=== PATIENT | female | born 1945 | race Caucasian/White ===

== ENCOUNTER 2025-07-13 18:22 | Emergency (ER) | payer MEDICARE, SELFPAY ==
--- OUTSIDE RECORDS SUMMARY | 2025-01-23 08:45 | XMS_ITS | Continuity of Care Document ---
Author Organization [facility] Address [address] [place] [address] Phone Care Team Providers Care Medical Scientific Officer Name Role Phone Maykel VILLEGAS MD, Heladio Unavailable Unavailable Procedures Procedure Date Initial Inpatient Or Observation Care, M od [facility] Advance Directives Directive Yes / No Effective Date File Name No Information Encounters Encounter Description Practice Location Reason(s) For Visit Diagnoses Date Provider Providers Copied on Encounter Initial Inpatient Or Observation Care, Mod [facility], [address], [id number], tel:[phone] No Information Maykel Leija. [address] [facility], [address], [place], [place], [id number], . tel:[phone] Referring Provider: Heladio Brar MD S, [address], [place], [address] . tel:[phone] Family History Family Member Type Diagnosis Age At Onset No Information Payers Payer name Insurance type Covered green party ID Authoriza tion(s) [place] Part B MB [id number] [place] Blue Cross Blue Shiel d [place] [id number] Social History Type Description Quantity Date Captured Comments Sex Female Smoking Status No Information Chief Complaint And Reason For Visit No Information Reason For Referral Reason For Referral No Information History Of Present Illness Encounter Date Complaint History Of Prese nt Illness No Information Functional Status Date Functional Assessmen t No Information Instructions Date Instruction Additional Infor mation No Information Assessments Type Assessment Date No Information Patient Care Teams Name Effective Dates (start - stop) Status Members No Information
--- OUTSIDE RECORDS SUMMARY | 2025-07-13 18:24 | XMS_ITS | Encounter Summary ---
Author Organization [facility] Address [address] [place] [address] Phone Care Team Providers Care Drain Tile Machine Operator Name Role Phone Tesfaye Dennis MD Primary Care Provider No, Physician Primary Care Provider Tsering Plaza MD Primary Care Provider Chidi Cardona MD Unavailable Ross Gill MD Unavailable [phone] Zay Lebron MD Primary Care Provider Tsering Plaza MD Unavailable Ross Gill MD Unavailable [phone] Tuan Mcintosh MD Unavailable [phone] Brandon Chakraborty MD Unavailable Sadaf Martel RN Unavailable Todd Quiñones MD Unavailable [phone] Danie Motnana MD Unavailable [phone] Josue Maciel RN Unavailable [facility] Pcp Unavailable Zay Lebron MD Primary Care Provider Encounter Details Date Type Department Care Team (Late st Contact Info) Description 04/13/2018 Orders Only [facility] Provider, MD [address] [place] [phone] Social History Tobacco Use Types Packs/Day Years Used Date Smoking Tobacco: Former Cigarettes Q uit: 1997 Smokeless Tobacco: Never Alcohol Use Standard Drinks/Week Comments No 0 (1 standard drink = 0.6 oz pure alcohol) 2 cups of coffee and 2 cups of tea Comments Unknown Sex and Gender Information Value Date Recorded Sex Assigned at Not on file Legal Sex Female 3:18 AM DELINQUENT TAX COLLECTOR Gender Identity Not on file Sexual Orientation Not on file documented as of this encounter Plan of Treatment Not on file documented as of this encounter Procedures Procedure Name Priority Date/Time Associated Diagnosis Comments DISCHARGE LABORATORY CUMULATIVE REPORT 04/13/2018 12:00 AM CDT documented in this encounter Results * DISCHARGE LABORATORY CUMULATIVE REPORT (04/13/2018 12:00 AM CDT) Narrative 04/13/2018 12:00 AM CDT Ordered by an unspecified provider. Historical Provider LAB BLOOD ORDERABLES Tracy l Result documented in this encounter Visit Diagnoses Not on filedocumented in this encounter Additional Health Concerns Infection Onset Date Last Indicated Resolved Time COVID: Suspected 11/01/2024 11/01/2024 11/01/2024 2:33 PM DELINQUENT TAX COLLECTOR COVID19 11/01/2024 11/01/2024 11/11/2024 3:05 AM DELINQUENT TAX COLLECTOR COVID: Recovered Comment:Added based on recent COVID infection. 11/11/2024 11/16/2024 02/09/2025 3:05 AM C DT COVID: Suspected 02/05/2025 02/05/2025 02/05/2025 11:50 AM CDT documented as of this encounter Care Teams Drain Tile Machine Operator Relationship Specialty Start Date End Date Tesfaye Dennis MD [address] [address] PCP - General 05/26/17 01/10/19 No, Physician PCP - General 01/11/19 04/10/19 Tsering Plaza MD PCP - General Nephrology 04/11/19 09/03/21 Zay Lebron MD [address] [facility] [address] [place] [address] PCP - General Family Medicine 09/04/21 04/24/25 Zay Lebron MD [address] [address] PCP - General Family Medicine 04/25/25 Chidi Cardona MD [address] [facility] [address] [place] [address] Consulting Physician Rheumatology 11/20/19 Ross Gill MD [address] [facility] [address], [place] [address] Consulting Physician Cardiology 11/20/19 Tsering Plaza MD [address] [facility] [address] [place] [address] Registered Nurse Nephrology 10/12/22 Ross Gill MD [address] [facility] [address] [place] [address] Consulting Physician Cardiology 10/12/22 10/12/22 Tuan Mcintosh MD [address] [facility] [address] [place] [address] Referring Physician Cardiology 10/12/22 Brandon Chakraborty MD [address] [facility] [address] [place] [address] Consulting Physician Rheumatology 04/13/23 Sadaf Martel, MARGARETH [address] [place] [address] [address] [place] [address] Sales Teacher 05/20/23 07/13/23 Todd Quiñones MD [address] [place] [address] [address] [place] [address] Consulting Physician Colon and Rectal Surgery 06/19/23 Danie Montana MD [address] [place] [address] Consulting Physician Urogynecology 12/16/23 Josue Maciel, MARGARETH [address] [place] [address] [address] [place] [address] Sales Teacher 12/13/24 03/01/25 [facility], [facility] Pcp [address] [place] [id number] 01/26/25 02/05/25 documented as of this encounter
--- OUTSIDE RECORDS SUMMARY | 2025-07-13 18:24 | XMS_ITS | Encounter Summary ---
Author Organization [facility] Address [address] [place] [address] Care Team Providers Care Glass Deposition Tender Name Role Phone Chidi Cardona MD Unavailable [phone] Ross Gill MD Unavailable Zay Lebron MD Primary Care Provider Tsering Plaza MD Unavailable Tuan Mcintosh MD Unavailable [phone] Brandon Chakraborty MD Unavailable Sadaf Martel RN Unavailable Todd Quiñones MD Unavailable Danie Montana MD Unavailable [phone] Josue Maciel RN Unavailable [phone] [facility] Pcp Unavailable Zay Lebron MD Primary Care Provider Encounter Details Date Type Department Care Team (Late st Contact Info) Description 10/30/[address] [address] Lis Garsia, RT Social History Tobacco Use Types Packs/Day Years Used Date Smoking Tobacco: Former Cigarettes 0.8 54 0 11/15/1956 - 11/15/2010 Smokeless Tobacco: Never Alcohol Use Standard Drinks/Week Comments No 0 (1 standard drink = 0.6 oz pure alcohol) 2 cups of coffee and 2 cups of tea AUDIT-C Answer Date Recorded Q1: How often do you have a drink containing alc ohol? Never 07/27/2022 Average Number of Drinks Not on file 022 Frequency of Binge Drinking Not on file 07/16 PHQ-2 Answer Date Recorded PHQ-2 Total Score (If total score is 3 or more points, staff should administer the PHQ-9) 0 10/12/2022 Comments No Sex and Gender Information Value Date Recorded Sex Assigned at Not on file Legal Sex Female 3:18 AM SUPERVISOR PARACHUTE MANUFACTURING Gender Identity Not on file Sexual Orientation Not on file documented as of this encounter Plan of Treatment Not on file documented as of this encounter Visit Diagnoses Not on filedocumented in this encounter Additional Health Concerns Infection Onset Date Last Indicated Resolved Time COVID: Suspected 11/01/2024 11/01/2024 11/01/2024 2:33 PM SUPERVISOR PARACHUTE MANUFACTURING COVID19 11/01/2024 11/01/2024 11/11/2024 3:05 AM SUPERVISOR PARACHUTE MANUFACTURING COVID: Recovered Comment:Added based on recent COVID infection. 11/11/2024 11/16/2024 02/09/2025 3:05 AM C DT COVID: Suspected 02/05/2025 02/05/2025 02/05/2025 11:50 AM CDT documented as of this encounter Care Teams Glass Deposition Tender Relationship Specialty Start Date End Date Zay Lebron MD [address] [place] [address] PCP - General Family Medicine 09/04/21 04/24/25 Zay Lebron MD [address] [place] [address] PCP - General Family Medicine 04/25/25 Chidi Cardona MD [address] [place] [address] Consulting Physician Rheumatology 11/20/19 Ross Gill MD [address] [place] [address] Consulting Physician Cardiology 11/20/19 Tsering Plaza MD [address] [place] [address] Registered Nurse Nephrology 10/12/22 Tuan Mcintosh MD [address] [place] [address] Referring Physician Cardiology 10/12/22 Brandon Chakraborty MD [address] [facility] [address] [place] [address] Consulting Physician Rheumatology 04/13/23 Sadaf Martel RN [address] [place] [address] [address] [place] [address] Utilization Engineer 05/20/23 07/13/23 Todd Quiñones MD [address] [place] [address] [address] [place] [address] Consulting Physician Colon and Rectal Surgery 06/19/23 Danie Montana MD [address] [place] [address] Consulting Physician Urogynecology 12/16/23 Josue Maciel, MARGARETH [address] [place] [address] [address] [place] [address] Utilization Engineer 12/13/24 03/01/25 [facility], [facility] Pcp [address] [place] [address] 01/26/25 02/05/25 documented as of this encounter
--- OUTSIDE RECORDS SUMMARY | 2025-07-13 18:24 | XMS_ITS | Encounter Summary ---
Author Organization [facility] [employer] [facility] Address [address] [place] [address] Phone Care Team Providers Care Security Agent Name Role Phone Tesfaye Dennis MD Primary Care Provider No, Physician Primary Care Provider [phone] Tsering Plaza MD Primary Care Provider Chidi Cardona MD Unavailable [phone] Ross Gill MD Unavailable [phone] Zay Lebron MD Primary Care Provider Tsering Plaza MD Unavailable Ross Gill MD Unavailable Tuan Mcintosh MD Unavailable [phone] Brandon Chakraborty MD Unavailable [phone] Sadaf Martel RN Unavailable Todd Quiñones MD Unavailable Danie Montana MD Unavailable Josue Maciel RN Unavailable [facility] Pcp Unavailable Zay Lebron MD Primary Care Provider Encounter Details Date Type Department Care Team (Late st Contact Info) Description 02/03/2018 Orders Only [facility] Provider, MD [address] [place] [phone] Social History Tobacco Use Types Packs/Day Years Used Date Smoking Tobacco: Former Cigarettes Q uit: 1997 Smokeless Tobacco: Never Alcohol Use Standard Drinks/Week Comments No 0 (1 standard drink = 0.6 oz pure alcohol) 2 cups of coffee and 2 cups of tea Comments Unknown Sex and Gender Information Value Date Recorded Sex Assigned at Not on file Legal Sex Female 3:18 AM RESPIRATORY THERAPIST Gender Identity Not on file Sexual Orientation Not on file documented as of this encounter Plan of Treatment Not on file documented as of this encounter Procedures Procedure Name Priority Date/Time Associated Diagnosis Comments DISCHARGE LABORATORY CUMULATIVE REPORT 02/03/2018 12:00 AM CDT documented in this encounter Results * DISCHARGE LABORATORY CUMULATIVE REPORT (02/03/2018 12:00 AM CDT) Narrative 02/03/2018 12:00 AM CDT Ordered by an unspecified provider. Historical Provider LAB BLOOD ORDERABLES Tracy l Result documented in this encounter Visit Diagnoses Not on filedocumented in this encounter Additional Health Concerns Infection Onset Date Last Indicated Resolved Time COVID: Suspected 11/01/2024 11/01/2024 11/01/2024 2:33 PM RESPIRATORY THERAPIST COVID19 11/01/2024 11/01/2024 11/11/2024 3:05 AM RESPIRATORY THERAPIST COVID: Recovered Comment:Added based on recent COVID infection. 11/11/2024 11/16/2024 02/09/2025 3:05 AM C DT COVID: Suspected 02/05/2025 02/05/2025 02/05/2025 11:50 AM CDT documented as of this encounter Care Teams Security Agent Relationship Specialty Start Date End Date Tesfaye Dennis MD [address] [address] PCP - General 05/26/17 01/10/19 No, Physician PCP - General 01/11/19 04/10/19 Tsering Plaza MD PCP - General Nephrology 04/11/19 09/03/21 Zay Lebron MD [address] [facility] [address] [place] [address] PCP - General Family Medicine 09/04/21 04/24/25 Zay Lebron MD [address] [address] PCP - General Family Medicine 04/25/25 Chidi Cardona MD [address] [facility] [address] [place] [address] Consulting Physician Rheumatology 11/20/19 Ross Gill MD [address] [facility] [address] [address] Consulting Physician Cardiology 11/20/19 Tsering Plaza MD [address] [facility] [address] [place] [address] Registered Nurse Nephrology 10/12/22 Ross Gill MD [address] [facility] [address] [place] [address] Consulting Physician Cardiology 10/12/22 10/12/22 Tuan Mcintosh MD [address] [facility] [address] [place] [address] Referring Physician Cardiology 10/12/22 Brandon Chakraborty MD [address] [facility] [address] [place] [address] Consulting Physician Rheumatology 04/13/23 Sadaf Martel, MARGARETH [address] [place] [address] [address] [place] [address] Electric Fork Operator 05/20/23 07/13/23 Todd Quiñones MD [address] [place] [address] [address] [place] [address] Consulting Physician Colon and Rectal Surgery 06/19/23 Danie Montana MD [address] [place] [address] Consulting Physician Urogynecology 12/16/23 Josue Maicel, MARGARETH [address] [place] [address] [address] [place] [address] Electric Fork Operator 12/13/24 03/01/25 [facility], [facility] Pcp [address] [place] [id number] 01/26/25 02/05/25 documented as of this encounter
--- OUTSIDE RECORDS SUMMARY | 2025-07-13 18:24 | XMS_ITS | Clinical Summary ---
Author Organization [facility] Address [address] [place] [address] Phone Care Team Providers Care Engagement Lead Name Role Phone Tsering Plaza MD Primary Care Provider Allergies Active Allergy Reactions Criticality Noted Date Comments Adhesive Tape-Silicones Unknown Ciprofloxacin Hcl Unknown Doxycycline Unknown Erythromycin Unknown 01/06/2011 Iodine Unknown Isosorbide Mononitrate Headache Low 09/19/2014 Latex Unknown Penicillins Unknown Simvastatin Muscle Pain Low 08/28/2011 Sulfa (Sulfonamide Antibiotics) Unknown Medications propafenone (RYTHMOL) 150 mg Oral Tab Take 1 Tab by mouth 2 times daily. Active aspirin (SHAWN) 81 mg Oral Tab Take 1 Tab by mouth daily. Active amLODIPine (NORVASC) 5 mg tablet Take 5 mg by mouth 2 times daily. Hold if BP below 120. Active CALCIUM CARBONATE (CALCIUM 500 ORAL) Take by mouth daily. Active HYDROCODONE/ALF TAMINOPHEN (NORCO ORAL) Take by mouth 1 time daily as needed. Active atenolol (TENORMIN) 25 mg tablet Take 25 mg by mouth daily. Hold if BP below 100. Active predniSONE (DELTASONE) 5 mg tablet Take 5 mg by mouth daily. Active predniSONE (DELTASONE) 1 mg tablet Take 3 mg by mouth daily. Active rosuvastatin (CRESTOR) 10 mg tablet Take 0.5 Tabs (5 mg) by mouth daily at bedtime. 15 Tab 11 03/20/2015 Active VITAMIN D2 50,000 unit capsule TAKE 1 CAPSULE BY MOUTH TWICE MONTHLY(EVER Y 2 WEEKS) 6 Cap 0 04/19/2015 Active Active Problems Patient Care Coordination No te Formatting of this note migh t be different from the original. Slabbing Machine Operator - Dr Ross Gill Problem Noted Date Diagnosed Date Raynaud phenomenon 09/19/2014 Overview (09/19/2014): in setting of RA & Sjogren's... Dr. Yoon follows Hyperlipidemia 08/07/2011 Overview (03/20/2015): 02/27 Cholesterol 156 HDL 74 LDL 68 triglycerides 72, normal LFTs/CK/glucose 06/28 Cholesterol 130 HDL 57 LDL 65 triglyceride 42, normal LFTs/glucose 11/27 Cholesterol 119 HDL 57 LDL 54 triglyceride 40, normal LFTs/CK/glucose 02/24 cholesterol 110 HDL 57 LDL 47 triglyceride 37, normal LFTs/CK 09/25 cholesterol 116 HDL 52 LDL 49 triglyceride 38, normal LFTs/CK 07/26 cholesterol 183 HDL 57 LDL 115 triglyceride 44, TSH 1.5, normal LFTs Renal insufficiency 08/07/2011 Overview (03/20/2015): 02/27 BUN 22 creatinine 1.24 06/28 BUN 20 creatinine 1.04 11/27 BUN 23 creatinine 1.24 09/25 BUN 21 creatinine 1.27 07/26 BUN 31 creatinine 1.39 Renal artery stenosis 01/06/2011 Overview (07/13/2014): 10/19 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 2010 renal artery duplex: OK per patient 05/28 renal artery duplex: possible borderline stenosis mid-distal right renal artery, no left IRMA Atrial fibrillation 01/06/2011 Overview (03/17/2012): ~1996 AF: Rx'd with Rhythmol Coronary atherosclerosis of [place] coronary shadi ry 01/06/2011 Overview (07/23/2014): 10/19 cath: LV 180/20-24, RA 3, PA 35/12, wedge10, significant systolic bridging mid LAD, 40-50% proximal D1, EF 80%, no MR 01/23 stress nuclear 6:00--61% maximal heart rate, no ischemia, EF 86% 07/29 stress nuclear 5:50--73% maximal heart rate, no ischemia, EF 75% Hypertension 01/06/2011 Overview (03/17/2012): 09/19 echo: EF 70%, mild MR, moderate TR 03/21 echo: EF 65%, mild MR/TR, PA 32 07/26 24-hour urine metanephrines, normetanephrines, VMA, 5'HIAA normal Supraventricular tachycardia 01/06/2011 Overview (11/24/2012): Holter: sinus rhythm range 50-110, occasional-frequent PACs, short runs atrial tachycardia, longest 6 12/26 Holter: sinus rhythm at 70, range 54-98), 1 PVC, 104 PACs, 5 atrial couplets, maximum pause 1.5, h/a correlated with SR in 60s History of rheumatic fever 01/06/2011 Overview (01/06/2011): Age 89 years old 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 Overview (03/17/2012): 2007 amaurosis fugax -> carotid Duplex negative; temporal artery biopsy negative ~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 Resolved Problems Problem Noted Date Diagnosed Date Resolved Date Chest discomfort 01/06/2011 03/17/2012 Tricuspid regurgitation 01/06/201101/2012 Overview (03/17/2012): 09/19 echo: EF 70%, mild MR, moderate TR 03/21 echo: EF 65%, mild MR/TR, PA 32. GERD (gastroesophageal reflux disease) 01/06/2011 03/17/2012 Family History Relation Name Status Comments Brother 1 Alive irregular heart beat Brother 2 Alive Brother 3 (Age 29) MVA Brother 4 (Age 51) brain aneu rysm Father (Age 54) industrial accident Mother (Age 83) AK/CABG at 70 Sister Alive Social History Tobacco Use Types Packs/Day Years Used Date Smoking Tobacco: Former Cigarettes 0.1 11.3 S tarted: 03/15/2014 Smokeless Tobacco: Never Alcohol Use Standard Drinks/Week Comments Yes 0 (1 standard drink = 0.6 oz pur e alcohol) Comments Unknown Sex and Gender Information Value Date Recorded Sex Assigned at Not on file Legal Sex Female 5:14 AM CLOTH MERCERIZER BACK TENDER Gender Identity Not on file Sexual Orientation Not on file 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 Not on file Not on file Last Filed Vital Signs Vital Sign Reading Time Taken Comments Blood Pressure 102/60 03/20/2015 11:27 AM CDT Pulse 70 03/20/2015 11:27 AM CDT Temperature - - Respiratory Rate 16 03/20/2015 11:27 AM CDT Oxygen Saturation 100% 07/17/2014 11:44 AM CDT Inhaled Oxygen Concentration - - Weight 46.3 kg (102 lb) 03/20/2015 11:27 AM CDT Height 154.9 cm (5' 1) 03/20/2015 11:27 AM CDT Body Mass Index 19.27 03/20/2015 11:27 AM CDT Plan of Treatment Health Maintenance Due Date Last Done Comments DTAP/TDAP/TD VACCINES (1 - Tdap) 1964 ZOSTER VACCINE (1 of 2) 1995 RSV VACCINE (60+ or ) (1 - 1-dose 75+ series) 2020 COVID-19 Vaccine ( - 2023-2 5 season) 2024 09/29/2021, 01/31/2021, 01/10/2021 INFLUENZA VACCINE (#1) 2025 0, 08/14/2019, 08/14/2018, Additional history exists OSTEOPOROSIS SCREENING 09/16/2026 1, 06/10/2018, 05/09/2015, Additional history exists PNEUMOCOCCAL VACCINE 50+ YEARS Completed 09/04/2021 , 09/16/2015 Insurance MEDICARE PART A AND B [employer] MEDICARE SUPP AESSI Care Teams Engagement Lead Relationship Specialty Start Date End Date Tsering Plaza MD PCP - General Internal Medicine 07/19/14
--- OUTSIDE RECORDS SUMMARY | 2025-07-13 18:24 | XMS_ITS | Clinical Summary ---
Author Organization [facility] Address [address], [facility] [address] [place] [address] Phone Care Team Providers Care Wastewater Design Engineer Name Role Phone Provider, None Primary Care Provider Unavailabl e Allergies Active Allergy Reactions Criticality Noted Date Comments Cefaclor Unknown 09/27/2015 Cefdinir Swelling 11/12/2015 Ciprofibrate Unknown 09/27/2015 Doxycycline Unknown 11/12/2015 Erythromycin Unknown 09/27/2015 Iodinated Contrast Media Unknown 09/27/2015 Isosorbide Nitrate Unknown 11/12/2015 Latex Hives 11/12/2015 Metoprolol Tartrate Unknown 09/27/2015 Penicillin G Unknown 09/27/2015 Sulfa Antibiotics Unknown 09/27/2015 Medications amLODIPine (NORVASC) 5 MG Tablet Take 5 mg by mouth 2 times daily (before meals). Active aspirin EC 81 MG Tablet Delayed Response Take 81 mg by mouth daily. Active atorvastatin (LIPITOR) 10 MG Tablet 3 5 Active calcium carbonate 1250 MG/5ML Suspension Take by mouth. Acti ve azaTHIOprine (IMURAN) 50 MG Tablet 11 5 Active NITROSTAT 0.4 MG SL Tablet 3 5 Active propafenone (RYTHMOL) 150 MG Tablet Take 150 mg by mouth 2 times daily. 3 5 Active ergocalciferol (VITAMIN D) 38080 UNIT Capsule Take 50,000 Units by mouth every 30 days. 3 5 Active HYDROcodone-nicci taminophen (NORCO) 5-325 MG Tablet TK 1 T PO Q 8 H PRN 0 6 Active predniSONE (DELTASONE) 1 MG Tablet TK 4 MG PO QD 2 6 Active dilTIAZem CD (CARDIZEM CD) 120 MG CAPSULE SR 24 HR TK 1 C PO D 3 7 Active fluticasone (FLONASE) 50 MCG/ACT Suspension 2 Sprays by Nasal route daily. Use in each nostril as directed. 1 Bottle 2 8 Active Additional Information Patient not taking.Reported on 05/12/2018 Calcium Carb-Cholecalci ferol (CALCIUM 600 + D PO) Take by mouth. Act rakan Cyanocobalamin (B-12) 1000 MCG Tablet Take by mouth. Activ e folic acid (FOLVITE) 1 MG Tablet Take 1 mg by mouth daily. Active methotrexate 2.5 MG Tablet Take 7.5 mg by mouth every 7 days. Active Multiple Vitamin (MULTIVITAMINS PO) Take by mouth. Activ e pravastatin (PRAVACHOL) 40 MG Tablet Take 40 mg by mouth daily. Active Active Problems Problem Noted Date Diagnosed Date Trigger thumb of left hand 11/12/2015 Hypertension 09/27/2015 GERD (gastroesophageal reflux disease) 5 History of anemia 09/27/2015 IBS (irritable bowel syndrome) 09/27/2015 Hyperlipidemia 09/27/2015 Arthritis 09/27/2015 Atrial fibrillation 09/27/2015 Carpal tunnel syndrome 09/27/2015 Osteopenia 09/27/2015 Raynaud's disease Renal artery stenosis Overview (11/12/2015): stent placement left renal artery Immunizations Immunization Administration Dates Next Due Hepatitis B Vaccine, Pediatric/adolescent 12/17/1998,07/16/1998,06/12/1998 Influenza Vaccine greater than 3 yrs 08/31/2016, 09/12/2015 08/31/2017 Influenza, Seasonal, Injecta ble, Undefined 09/12/2015,09/06/2013,08/31/2012 Influenza, Trivalent, Adjuvanted, PF 08/15/2018 Influenza, high-dose, trivalent, PF 07/18,08/16/2017,08/30/2016,09/16,09/05/2014 Pneumococcal Vaccine - 13 Valent 09/16/2015 Tetanus Toxoid, Unspecified Formulation 08/15/2006 Social History Tobacco Use Types Packs/Day Years Used Date Smoking Tobacco: Former Cigarettes Q uit: 11/12/2013 Smokeless Tobacco: Never Tobacco Cessation:Counseling Given: Yes Alcohol Use Standard Drinks/Week Comments No 0 (1 standard drink = 0.6 oz pur e alcohol) Sexually Active Control Partners Comments Not Currently Comments No Sex and Gender Information Value Date Recorded Sex Assigned at Not on file Legal Sex Female 10:21 PM CDT Gender Identity Not on file Sexual Orientation Not on file Last Filed Vital Signs Vital Sign Reading Time Taken Comments Blood Pressure 128/60 05/12/2018 11:17 AM CDT Pulse 51 05/12/2018 11:17 AM CDT Temperature 36.4 C (97.6 F) 05/12/2018 11:17 AM CDT Respiratory Rate 16 05/12/2018 11:17 AM CDT Oxygen Saturation 98% 05/12/2018 11:17 AM CDT Inhaled Oxygen Concentration - - Weight 45.1 kg (99 lb 6.4 oz) 05/12/2018 11:17 A M CDT Height 154.9 cm (5' 1) 05/12/2018 11:17 AM CDT Body Mass Index 18.78 05/12/2018 11:17 AM CDT Plan of Treatment Health Maintenance Due Date Last Done Comments Hepatitis C Virus (HCV) Screening 1945 TdaP Immunization 1945 Zoster Immunization (1 of 2) 1964 Pneumococcal Immunization (50+ years) (2 of 2 - PCV20 or PCV21) 09/16/2016 09/16/2015 Respiratory Syncytial Virus (RSV) Immunization (Adult) (1 - 1-dose 75+ series) 2020 SARS-COV-2 Immunization ( - season) 2024 09/29/2021, 01/31/2021, 01/10/2021 Influenza Immunization (#1) 07/16/202507/18, 08/15/2018, 08/16/2017, Additional history exists Hepatitis B Immunization Aged Out 999, 07/16/1998, 06/12/1998 No longer eligible based on patient's age to complete this topic Pneumococcal Immunization Combined Discontinued 09/16/2015 Human Papillomavirus (HPV) Immunization Aged Out No longer eligible based on patient's age to complete this topic Meningococcal Immunization (ACWY) Aged Out No longer eligible based on patient's age to complete this topic Rotavirus Immunization Aged Out No lo nger eligible based on patient's age to complete this topic Insurance MEDICARE [employer] [facility] Care Teams Wastewater Design Engineer Relationship Specialty Start Date End Date Provider, None [place] PCP - General 05/01/21
--- OUTSIDE RECORDS SUMMARY | 2025-07-13 18:25 | XMS_ITS | Encounter Summary ---
Author Organization [employer] Address 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
--- OUTSIDE RECORDS SUMMARY | 2025-07-13 18:25 | XMS_ITS | Clinical Summary ---
Author Organization [facility] Address [address] [place] [address] Care Team Providers Care Solar Systems Designer Name Role Phone Chidi Cardona MD Unavailable [phone] Ross Gill MD Unavailable Tsering Plaza MD Unavailable Tuan Mcintosh MD Unavailable Brandon Chakraborty MD Unavailable [phone] Todd Quiñones MD Unavailable Danie Montana MD Unavailable Zay Lebron MD Primary Care Provider Allergies Active Allergy Reactions Criticality Noted Date Comments Adhesive Adhesive Tape-Silicones Unknown 06/19/2023 Azathioprine Nausea And Vomiting,Rash Medium 04/28/2016 Cefaclor Cefdinir Ciprofibrate Unknown 09/27/2015 Ciprofloxacin Hives Medium Ciprofloxacin Hcl Unknown Doxycycline Urticaria Medium Erythromycin Iodinated Contrast Media Hives Medium 09/27/2015 Iodine Isosorbide Latex Itching Low Lisinopril Anaphylaxis High 01/11/2019 Metrizamide Urticaria Medium 10/25/2015 Other reaction(s): Unknown Penicillin Penicillin G Hives Medium 09/27/2015 Penicillins Vomiting Low 06/19/2023 Povidone-Iodine Rash Medium 10/25/2015 Quinolones Simvastatin Sulfa (Sulfonamide Antibiotics) Unknown 09/27/2015 Sulfasalazine Rash Medium 09/27/2015 Tetracycline Medications pravastatin (PRAVACHOL) 40 mg tabletIndications :hyperlipidemia Take 1 tablet (40 mg total) by mouth nightly Active cholecalciferol (VITAMIN D-3) 2000 unit capsuleIndication s:Osteoporosis Take 1 capsule (2,000 Units total) by mouth daily Active multivit rzpjswcd-pimx-FL- calcium (THERA-M) 9 mg iron-400 mcg tabletIndications :Mineral Deficiency Prevention,Vitami n Deficiency Prevention Take 1 tablet by mouth daily Active calcium citrate-vitamin D3 (CITRACAL+D) 315 mg-5 mcg (200 unit) per tabletIndications :Vitamin D Deficiency Take 1 tablet by mouth daily Active dilTIAZem CD 240 mg 24 hr capsuleIndication s:Diastolic Heart Failure,hypertens ion,Ventricular Rate Control in Atrial Fibrillation Take 1 capsule (240 mg total) by mouth 2 (two) times a day 12/05/19 24 Active predniSONE (DELTASONE) 5 mg tabletIndications :lupus Take 1 tablet (5 mg) by mouth daily 05/28/20 24 Active apixaban (ELIQUIS) 2.5 mg tabletIndications :VTE Prophylaxis Take 1 tablet (2.5 mg total) by mouth 2 (two) times a day Active metoprolol XL (TOPROL-XL) 50 mg extended release tabletIndications :chronic heart failure,hypertens ion Take 1.5 tablets (75 mg total) by mouth daily Active mycophenolate mofetil (CELLCEPT) 500 mg tabletIndications :Diffuse Proliferative Lupus Nephritis Take 1 tablet (500 mg total) by mouth 2 (two) times a day Active docusate sodium (COLACE) 100 mg capsuleIndication s:constipation Take 1 capsule (100 mg total) by mouth 2 (two) times a day as needed for constipation 12/12/19 25 026 Active Additional Information Patient not taking.Reported on 05/21/2025 magnesium oxide (MAG-OX) 400 mg (241.3 mg elemental magnesium) tabletIndications :hypomagnesemia Take 1 tablet (400 mg total) by mouth daily 12/12/19 25 Active potassium chloride ER (KLOR-CON) 10 mEq CR tabletIndications :hypokalemia prevention Take 1 tablet/capsule (10 mEq total) by mouth 2 (two) times a day 180 tablet/capsu le 3 12/12/19 25 026 Active ferrous sulfate 325 mg (65 mg of elemental iron) tablet Take 1 tablet (65 mg of elemental iron total) by mouth daily with breakfast Active furosemide (LASIX) 80 mg tabletIndications :Edema,Peripheral Edema due to Chronic Heart Failure Take 1 tablet (80 mg total) by mouth daily 30 tablet 1 01/29/20 25 Active cyanocobalamin (Vitamin B-12) 500 mcg tabletIndications :Prevention of Vitamin B12 Deficiency Take 1 tablet (500 mcg total) by mouth daily Active acetaminophen (TYLENOL) 500 mg tabletIndications :Arthritic Pain,Pain Take 1 tablet (500 mg total) by mouth every 6 (six) hours as needed for pain Active allopurinoL (ZYLOPRIM) 100 mg tabletIndications :Acute idiopathic gout involving toe of right foot TAKE 1/2 TABLET BY MOUTH DAILY 50 tablet 1 02/18/20 25 Active Active Problems Problem Noted Date Diagnosed Date Postmenopausal 04/30/2025 CHF (congestive heart failur e), NYHA class I, acute on chronic, diastolic 12/06/2024 Chronic heart failure with preserved ejection fr action 08/27/2024 Assessment & Plan (12/28/2024 9:48 AM HEAD OF QUALITY): - Chronic condition, not at goal, recent exacerbation - echo with findings as shown below - recent hospitalization 06/06 for acute diastolic heart failure exacerbation - has lower extremity edema - currently on lasix 40 mg daily and potassium daily with the lasix (has been told to take an extra 40 mg lasix if weight gain >2 lbs by cardiology) - continue current management per cardiology and nephrology as she has CKD stage 3B and follows with nephrology Echo 04/2023 Conclusions: Irregular rhythm. Severe concentric left ventricular hypertrophy. Ejection fraction is visually estimated at 65 to 70 %. There is mild enlargement of left atrium. Severe mitral annular calcification. Mild mitral valve regurgitation. Aortic cusps appear mildly sclerotic. Normal structure of the tricuspid valve. Moderate pulmonary hypertension based on right ventricular systolic pressure. Estimated peak RVSP is 55 to 59 mmHg. Mild to moderate tricuspid regurgitation. Assessment & Plan (11/28/2024 12:10 PM HEAD OF QUALITY): - Chronic condition, currently in exacerbation -Most recent hospitalization 06/06 for acute diastolic heart failure exacerbation - has lower extremity edema which is progressively worsening - currently on lasix 20 mg daily which she had in past for PRN use - aware to consult Nephrology with increased use however due to their delayed response and labs as above, recommend increase to 40 mg daily for 3 days Echo 04/2023 Conclusions: Irregular rhythm. Severe concentric left ventricular hypertrophy. Ejection fraction is visually estimated at 65 to 70 %. There is mild enlargement of left atrium. Severe mitral annular calcification. Mild mitral valve regurgitation. Aortic cusps appear mildly sclerotic. Normal structure of the tricuspid valve. Moderate pulmonary hypertension based on right ventricular systolic pressure. Estimated peak RVSP is 55 to 59 mmHg. Mild to moderate tricuspid regurgitation. Assessment & Plan (08/27/2024 3:53 AM CDT): - Chronic condition, stable - echo with findings as shown below - recent hospitalization 06/06 for acute diastolic heart failure exacerbation - has lower extremity edema - currently on lasix 20 mg daily which she had in past for PRN use - aware to run it by her completion engineer with lasix use - continue current management Echo 04/2023 Conclusions: Irregular rhythm. Severe concentric left ventricular hypertrophy. Ejection fraction is visually estimated at 65 to 70 %. There is mild enlargement of left atrium. Severe mitral annular calcification. Mild mitral valve regurgitation. Aortic cusps appear mildly sclerotic. Normal structure of the tricuspid valve. Moderate pulmonary hypertension based on right ventricular systolic pressure. Estimated peak RVSP is 55 to 59 mmHg. Mild to moderate tricuspid regurgitation. ACP (advance care planning) 08/14/2024 Assessment & Plan (08/14/2024 1:33 PM CDT): Advance Care Planning Advance Care Planning Conversation Pertinent diagnoses: CKD stage 3B, Coronary artery disease, Congestive heart failure The patient and/or family consented to a voluntary Advance Care Planning conversation. Individuals present for the conversation: patient Summary of the conversation: see below CPR: Yes Intubation and Mechanical Ventilation: Yes Outcome of the conversation and documents completed (select all that apply): CHANGE code status to FULL CODE I spent 6 minutes providing separately identifiable ACP services with the patient and/or surrogate decision maker in a voluntary, in-person conversation discussing the patient's wishes and goals as detailed in the above note. Zay Lebron MD Mild neurocognitive disorder 08/14/2024 Overview (09/25/2024): 12/08 - reversible causes lab unremarkable, Vitamin B6 level pending Assessment & Plan (08/14/2024 1:34 PM CDT): - new diagnosis - SLUMS on 08/14/2024 - orders placed to check for reversible causes of cognitive decline Abnormality of gait due to impairment of balance 05/16/2024 Assessment & Plan (12/28/2024 9:56 AM HEAD OF QUALITY): - Chronic, recurring condition but improved - she has had significant improvement with physical therapy in the past and would like to have physical therapy again to help her with ambulation and balance, new referral placed to [facility] Assessment & Plan (08/14/2024 1:36 PM CDT): - Chronic, recurring condition but improved - she has had significant improvement with physical therapy in the past and would like to have physical therapy again to help her with ambulation and balance, referral placed to physical therapy in past visit Assessment & Plan (05/16/2024 10:57 AM CDT): - recurring condition, has had significant improvement with physical therapy in the past and would like to have physical therapy again to help her with ambulation and balance, referral placed to physical therapy 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 Lab Results Component Value Date URICACID 5.7 04/30/2025 XR Right foot 04/2024 IMPRESSION: Hallux valgus, mild great toe metatarsophalangeal joint osteoarthritis and soft tissue and bony bunion. Mild soft tissue swelling at the medial aspect of the 1st metatarsal head with possible erosions in the 1st metatarsal head. These findings can be seen with gout. Assessment & Plan (12/28/2024 10:05 AM HEAD OF QUALITY): - chronic condition, stable - diagnosed on 04/2024 with right great toe MTP welling and pain, elevated Uric acid noted as well - obtained XR of foot at the time, see below - currently on Allopurinol 50 mg daily - has known CKD Stage 3B - most recent Uric acid as shown below - The current medical regimen is effective; continue present plan and medications. Lab Results Component Value Date URICACID 5.7 09/21/2024 URICACID 5.5 09/21/2024 XR Right foot 04/2024 IMPRESSION: Hallux valgus, mild great toe metatarsophalangeal joint osteoarthritis and soft tissue and bony bunion. Mild soft tissue swelling at the medial aspect of the 1st metatarsal head with possible erosions in the 1st metatarsal head. These findings can be seen with gout. Assessment & Plan (08/14/2024 1:21 PM CDT): - recent diagnosis, improved - diagnosed on 04/2024 with right great toe MTP welling and pain, elevated Uric acid noted as well - obtained XR of foot at the time, see below - started on Allopurinol 50 mg daily on last visit - a month ago - has known CKD Stage 3B - most recent Uric acid as shown below - continue current management Lab Results Component Value Date URICACID 6.4 05/16/2024 XR Right foot 04/2024 IMPRESSION: Hallux valgus, mild great toe metatarsophalangeal joint osteoarthritis and soft tissue and bony bunion. Mild soft tissue swelling at the medial aspect of the 1st metatarsal head with possible erosions in the 1st metatarsal head. These findings can be seen with gout. Assessment & Plan (05/16/2024 10:53 AM CDT): - recent diagnosis - improved, new diagnosis on 04/2024 with right great toe MTP welling and pain, elevated Uric acid noted as well - obtained XR of foot at the time, see below - started on Allopurinol 50 mg daily on last visit - a month ago - recheck uric acid, order placed Lab Results Component Value Date URICACID 7.4 (H) 04/25/2024 XR Right foot 04/2024 IMPRESSION: Hallux valgus, mild great toe metatarsophalangeal joint osteoarthritis and soft tissue and bony bunion. Mild soft tissue swelling at the medial aspect of the 1st metatarsal head with possible erosions in the 1st metatarsal head. These findings can be seen with gout. Assessment & Plan (04/25/2024 4:28 PM CDT): Patient presenting with the acute foot pain with history consistent with an acute gout attack. Symptoms already seem to be improving and she has been using ibuprofen twice daily for the last few days. She is also already on long-term use of prednisone 5 mg daily. Continue current management in the meantime and I will obtain uric acid level and x-ray of the right foot for further evaluation. Discussed if there is elevated uric acid will likely send her medication to lower the uric acid. Up date below -- Uric acid found to be elevated as shown below Consistent with Acute Gout Start Allopurinol 50 mg daily given known CKD stage 3B, script sent in Lab Results Component Value Date URICACID 7.4 (H) 04/25/2024 Incomplete uterovaginal prolapse 11/22/2023 Assessment & Plan (01/11/2025 12:47 PM HEAD OF QUALITY): -managed with #2 Gelshilpa -normal exam, may continue pessary checks q4 months, return precautions reviewed Urinary retention with incomplete bladder emptyi ng 11/22/2023 Assessment & Plan (05/25/2024 12:54 PM CDT): -pt feels her bladder emptying has improved with use of pessary -consider repeat PVR at future follow up Vaginal atrophy 11/22/2023 Assessment & Plan (01/11/2025 12:47 PM HEAD OF QUALITY): - continue twice weekly VET Assessment & Plan (05/25/2024 12:52 PM CDT): - increase to 3x weekly intravaginal VET - she was instructed to use a pea sized amount of vaginal estrogen cream to the opening of the vagina daily for one week and the decrease to 3 times per week . Assessment & Plan (01/07/2024 11:19 AM HEAD OF QUALITY): -continue twice weekly intravaginal VET -use peasized amount daily to introitus Urge incontinence of urine 11/22/2023 Vasovagal syncope 06/03/2023 Persistent atrial fibrillation 06/03/2023 Uterine prolapse 05/19/2023 Assessment & Plan (05/25/2024 12:51 PM CDT): Currently managed with a #2 Gellhorn, she may be interested in surgery and would like to review options with Dr. Montana. Pessary checks painful likely related to atrophy, recommend HURRICANE SPRAY or LIDOCAINE JELLY prior to pessary removal Follow up with Dr. Montana for next pessary check / surgical discussion Assessment & Plan (01/07/2024 11:18 AM HEAD OF QUALITY): -She is very happy with support of prolapse with pessary, downsized to #2 Gellhorn today 2/2 narrowed introitus and increased discomfort with pessary removal. She was sent home with #3 Gellhorn -Return in 3 months for pessary check USE HURRICANE SPRAY OR LIDOCAINE JELLY AT PRIOR TO REMOVAL Assessment & Plan (12/16/2023 10:21 AM HEAD OF QUALITY): - recently established with Uro gynecology - s/p recent pessary placement which has helped - S/p rectal prolapse repair 07/07 Patient was recently seen by urogynecology on 11/22/2023 for uterine prolapse, incomplete uterovaginal prolapse, urinary retention with incomplete bladder emptying, vaginal atrophy as well as urge incontinence with urine. She has pessary placed which has helped her. Assessment & Plan (05/26/2023 11:07 AM CDT): - reports recent diagnosis - she was seen by OBGYN provider while hospitalization and told to follow up outpatient - will reach out to OBGYN provider patient saw in hospital to set up follow up appointment as soon as possible as her rectal prolapse repair is also dependent on repair of her uterine prolapse Chronic anemia 04/13/2023 Assessment & Plan (05/02/2025 5:46 AM CDT): - chronic condition, improved significantly - established with GI and nephrology - has CKD Stage 3B and iron deficiency - normal labs in past as shown below for iron and vitamin b12, folate - known iron deficiency, s/p iron infusion in recent hospital stay - now on daily iron supplementation - being monitored closely by nephrology - currently on oral iron supplement daily --> reduce to every other day given elevated ferritin - recheck labs, order placed with results updated below Lab Results Component Value Date WBC 7.75 04/30/2025 HGB 11.5 (L) 04/30/2025 HCT 37.5 04/30/2025 MCV 97.4 (H) 04/30/2025 LABPLAT 254 04/30/2025 Lab Results Component Value Date VITB12 736 04/30/2025 Lab Results Component Value Date FOLATE 18.8 12/06/2024 Lab Results Component Value Date IRON 100 04/30/2025 TIBC 283 04/30/2025 FERRITIN 226 (H) 04/30/2025 Assessment & Plan (12/28/2024 10:05 AM HEAD OF QUALITY): - chronic condition - established with GI and nephrology - has CKD Stage 3B and iron deficiency - normal labs in past as shown below for iron and vitamin b12, folate - known iron deficiency, s/p iron infusion in recent hospital stay - now on daily iron supplementation - being monitored closely by nephrology - recheck labs, order placed Lab Results Component Value Date WBC 7.9 12/06/2024 HGB 9.0 (L) 12/06/2024 HCT 29.4 (L) 12/06/2024 MCV 92.5 12/06/2024 LABPLAT 261 12/06/2024 Lab Results Component Value Date VITB12 3,614 (H) 12/06/2024 Lab Results Component Value Date FOLATE 18.8 12/06/2024 Lab Results Component Value Date IRON 27 (L) 12/06/2024 TIBC 332 12/06/2024 FERRITIN 47 12/06/2024 Assessment & Plan (08/11/2023 11:06 AM CDT): - chronic condition - established with GI and nephrology - has CKD Stage 3A - normal labs in past as shown below for iron and vitamin b12, folate - being monitored closely by nephrology Lab Results Component Value Date WBC 11.9 (H) 06/25/2023 HGB 9.8 (L) 06/25/2023 HCT 31.2 (L) 06/25/2023 MCV 95.7 06/25/2023 LABPLAT 250 06/25/2023 Lab Results Component Value Date VITB12 711 05/29/2023 Lab Results Component Value Date FOLATE 24.6 05/29/2023 Lab Results Component Value Date IRON 23 (L) 05/29/2023 TIBC 325 05/29/2023 FERRITIN 38 05/29/2023 Assessment & Plan (04/13/2023 10:41 AM CDT): - chronic condition, concern if this is from CKD - established with GI and nephrology - has CKD Stage 3A - normal labs in past as shown below for iron and vitamin b12, folate - recheck labs, order placed Lab Results Component Value Date VITB12 578 04/02/2022 Lab Results Component Value Date FOLATE >20.0 04/02/2022 Lab Results Component Value Date IRON 89 04/02/2022 TIBC 240 (L) 04/02/2022 FERRITIN 67 04/02/2022 Liver cyst 07/27/2022 Assessment & Plan (05/26/2023 11:09 AM CDT): - was evaluated by GI - Dr. Jeffers in past - initially noted subcentimeter cystic lesion on CT and US - she had MRI ordered which was not done due to her claustrophobia and has to be done at [facility] or [facility] but has not been scheduled or done - discussed order is still there and if there is an issue to let me know Lab Results Component Value Date ALT 27 05/10/2023 AST 23 05/10/2023 ALKPHOS 63 05/10/2023 BILITOT 0.3 05/10/2023 Assessment & Plan (07/27/2022 2:05 PM CDT): Incidental subcentimeter cystic lesion found on CT and ultrasound. Normal liver enzymes from 02/2022, patient is asymptomatic with no acute GI symptoms. order MRI for further evaluation of liver lesion given inconclusive ultrasound findings that could be suggestive of simple cyst versus biliary cyst adenoma. Repeat CMP. Of note patient is extremely claustrophobic, required sedatives prior to her last MRI Cystadenoma of liver 07/27/2022 Colon cancer screening 07/27/2022 Assessment & Plan (07/27/2022 1:59 PM CDT): Patient had incomplete colonoscopy from 20 years ago due to tortuous colon. Patient would like to defer discussion of future colon cancer screening until after MRI. Will discuss at next clinic visit. Liver lesion 07/17/2022 Assessment & Plan (04/13/2023 10:28 AM CDT): - first noted on CT as shown below and then obtained US of the liver - referred to GI, recommended MRI which has been ordered and is pending to be done - Referral placed to GI - Dr. Jeffers and established care - she was recommended to get MRI but there was an issue with getting sedative medication and patient was frustrated and cancelled the test CT Chest Abdomen Pelvis W contrast 06/05 3. Indeterminate subcentimeter hypoattenuating lesion within the posteroinferior right hina liver, new compared to 2018. This is favored to represent a cyst. Recommend correlation with liver sonogram. US Liver 07/06 IMPRESSION: 1. No evidence of an acute abnormality. 2. Subcentimeter hypoechoic lesion in the right hepatic lobe corresponding to the lesion seen on CT, appears cystic but does not demonstrate all features of a simple cyst. Lesion may be a biliary cystadenoma. Assessment & Plan (10/12/2022 10:55 AM HEAD OF QUALITY): - recent diagnosis noted on CT as shown below and then obtained US of the liver - referred to GI, recommended MRI which has been ordered and is pending to be done CT Chest Abdomen Pelvis W contrast 06/05 3. Indeterminate subcentimeter hypoattenuating lesion within the posteroinferior right hina liver, new compared to 2018. This is favored to represent a cyst. Recommend correlation with liver sonogram. US Liver 07/06 IMPRESSION: 1. No evidence of an acute abnormality. 2. Subcentimeter hypoechoic lesion in the right hepatic lobe corresponding to the lesion seen on CT, appears cystic but does not demonstrate all features of a simple cyst. Lesion may be a biliary cystadenoma. Referral placed to GI - Dr. Jeffers - has f/u in November 2022 Heart murmur 09/05/2021 Personal history of tobacco use 09/04/2021 Overview (04/30/2025): Quit 2010, not eligible for screening LDCT Assessment & Plan (12/28/2024 9:42 AM HEAD OF QUALITY): Social History Tobacco Use Smoking Status Former Current packs/day: 0.00 Average packs/day: 0.8 packs/day for 54.0 years (40.5 ttl pk-yrs) Types: Cigarettes Start date: [birth year]/15/1956 Quit date: 11/15/2010 Years since quittin.1 Passive exposure: Past Smokeless Tobacco Never - quit smoking when she was diagnosed Systemic Lupus and Raynauds - not eligible for lung cancer screening Assessment & Plan (08/14/2024 1:26 PM CDT): Social History Tobacco Use Smoking Status Former Current packs/day: 0.00 Average packs/day: 0.8 packs/day for 54.0 years (40.5 ttl pk-yrs) Types: Cigarettes Start date: [birth year]/15/1956 Quit date: 11/15/2010 Years since quittin.7 Passive exposure: Past Smokeless Tobacco Never - quit smoking when she was diagnosed Systemic Lupus and Raynauds Assessment & Plan (09/04/2021 12:29 PM CDT): Social History Tobacco Use Smoking Status Former Smoker Packs/day: 0.75 Types: Cigarettes Start date: [birth year]/15/1956 Quit date: 11/15/2010 Years since quittin.8 Smokeless Tobacco Never Used - quit smoking when she was diagnosed Systemic Lupus and Raynauds Primary osteoarthritis of left knee 11/20/2019 Overview (04/30/2025): Follows with orthopedics Assessment & Plan (12/28/2024 9:58 AM HEAD OF QUALITY): - chronic condition - has chronic left knee pain and swelling - she was evaluated by orthopedic provider in past - plans to have her left knee replaced by orthopedics but plan has been pushed back due to her health issues XR Left knee 05/08 AP, PA, lateral, and sunrise views taken of the left knee today reveal mild to moderate degenerative changes with subchondral sclerosis, osteophyte formation, and maintained joint space. Bipartite patella. Assessment & Plan (08/14/2024 1:40 PM CDT): - chronic, recurring issue - reviewed past XR of left knee from 2019 which showed mild to moderate OA - denies any recent trauma/accident, no past history of left knee surgery - has left knee effusion noted on examination that was drained in the past - she was evaluated by orthopedic provider regarding it XR Left knee 05/08 AP, PA, lateral, and sunrise views taken of the left knee today reveal mild to moderate degenerative changes with subchondral sclerosis, osteophyte formation, and maintained joint space. Bipartite patella. Assessment & Plan (05/16/2024 10:58 AM CDT): - chronic, recurring issue - reviewed past XR of left knee from 2019 which showed mild to moderate OA - denies any recent trauma/accident, no past history of left knee surgery - has left knee effusion noted on examination that was drained in the past - plans to follow up with Orthopedics and is interested in knee replacement Assessment & Plan (04/26/2023 4:47 PM CDT): - chronic, recurring issue - reviewed past XR of left knee from 2019 which showed mild to moderate OA - denies any recent trauma/accident, no past history of left knee surgery - has left knee effusion noted on examination - obtain XR of left - would benefit with knee aspiration after XR of left knee is obtained Nonrheumatic mitral valve regurgitation 11/20/19 20 Assessment & Plan (06/09/2022 11:11 AM CDT): - chronic, stable - follows with cardiology - hx of rheuamtic fever in childhood - age 9 - hx of mitral valve regurgitation - has had Echo on 04/2020 - unable to see results Assessment & Plan (09/05/2021 11:58 AM CDT): - chronic, stable - follows with cardiology - hx of rheuamtic fever in childhood - hx of mitral valve regurgitation - has had Echo on 04/2020 - unable to see results Assessment & Plan (11/20/2019 10:19 AM HEAD OF QUALITY): 12/21 systolic murmur unchanged. Monitored by cardiology (Dr. Arce). 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 Side effects of oral corticosteroids Because oral corticosteroids affect your entire body instead of just a particular area, this route of administration is the most likely to cause significant side effects. Side effects depend on the dose of medication you receive and may include: Elevated pressure in the eyes (glaucoma) Fluid retention, causing swelling in your lower legs High blood pressure Problems with mood, memory, behavior and other psychological effects Weight gain, with fat deposits in your abdomen, face and the back of your neck When taking oral corticosteroids longer term, you may experience: Clouding of the lens in one or both eyes (cataracts) High blood sugar, which can trigger or worsen diabetes Increased risk of infections Thinning bones (osteoporosis) and fractures Suppressed adrenal gland hormone production Thin skin, bruising and slower wound healing Vitamin D deficiency 05/23/2018 Assessment & Plan (04/30/2025 9:38 AM CDT): - chronic condition, controlled - currently on Vitamin D3 - 2000 IU daily - on vitamin D supplementation, has known CKD Stage 3B - beng monitored regularly, most recent lab as shown below -The current medical regimen is effective; continue present plan and medications. Lab Results Component Value Date 25HYDROVITD 52 09/21/2024 25HYDROVITD 54 01/24/2024 25HYDROVITD 46 01/07/2023 25HYDROVITD 44 02/18/2022 25HYDROVITD 50 07/31/2021 Assessment & Plan (08/14/2024 1:27 PM CDT): - chronic condition, controlled - currently on Vitamin D3 - 2000 IU daily - on vitamin D supplementation, has known CKD Stage 3B - beng monitored regularly, most recent lab as shown below - continue with current therapy Lab Results Component Value Date 25HYDROVITD 54 01/24/2024 25HYDROVITD 46 01/07/2023 25HYDROVITD 44 02/18/2022 25HYDROVITD 50 07/31/2021 25HYDROVITD 59 03/13/2021 Assessment & Plan (04/13/2023 10:13 AM CDT): - chronic condition, controlled - currently on Vitamin D3 - 2000 IU daily - on vitamin D supplementation - beng monitored regularly - continue with current therapy Lab Results Component Value Date 25HYDROVITD 46 01/07/2023 25HYDROVITD 44 02/18/2022 25HYDROVITD 50 07/31/2021 25HYDROVITD 59 03/13/2021 25HYDROVITD 54 01/03/2021 Assessment & Plan (06/09/2022 10:50 AM CDT): - chronic condition, controlled - currently on Vitamin D3 - 2000 IU daily - on vitamin D supplementation - beng monitored regularly - continue with current therapy - noted to have vitamin D deficiency on - most recent Vitamin D level is as shown below - continue current therapy Vitamin D, 25-hydroxy Date Value Ref Range Status 02/18/2022 44 30 - 80 ng/mL Final Assessment & Plan (09/04/2021 12:33 PM CDT): - chronic condition, controlled - currently on Vitamin D3 - 2000 IU daily - on vitamin D supplementation - beng monitored regularly - continue with current therapy Assessment & Plan (04/11/2019 10:57 AM CDT): Images from the original note were not included. Assessment & Plan (10/12/2018 1:54 PM HEAD OF QUALITY): Images from the original note were not included. Assessment & Plan (06/23/2018 1:33 PM CDT): 25 [place] Vitamin D normal 04/2018. Discontinue D2 Rx when depleted and start instead over the counter Vitamin D3 2000 IU daily. Assessment & Plan (05/23/2018 8:35 PM CDT): Vitamin D normal on recent lab: LVH (left ventricular hypertrophy) 04/28/2018 Overview (06/23/2018): Overview: 09/19 echo: EF 70%, mild MR, moderate TR 03/21 echo: EF 65%, mild MR/TR, PASP 32 06/01 echo: EF 75%, mild LVH, moderate septal LVH, LVOT gradient 12 -> Valsalva - > 20 mmHg, mild TR, RVSP 45 Tonic pupillary reaction of right eye 04/14/2018 Assessment & Plan (04/14/2018 1:09 PM CDT): Stable. SLE (systemic lupus erythematosus related syndro me) 10/09/2015 Overview (04/30/2025): Follows with Rheumathology Assessment & Plan (04/30/2025 9:54 AM CDT): - chronic, controlled - group home use of systemic steroid, since 2012 has been on prednisone - they have tried to wean her off prednisone over the years but symptoms of pain in fingers come back, no other significant joint pains other than hands - currently on Cellcept 500 mg BID, and 250 mg at noon - has never been in monoclonal antibody medication due to concern for insurance approval - currently on Prednisone 5 mg daily via rheumathology, - has raynauds syndrome as well, cold insensitivity, has to wear gloves as well - on calcium and vitamin D supplementation - on vitamin B12 supplementation - following with nephrology - concern about lupus nephropathy - follows and managed by Rheumatology - Dr. 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, since 2012 has been on prednisone - they have tried to wean her off prednisone over the years but symptoms of pain in fingers come back, no other significant joint pains other than hands - currently on Cellcept 500 mg BID, and 250 mg at noon - has never been in monoclonal antibody medication due to concern for insurance approval - currently on Prednisone - group home use by another provider, her senior field engineer has discussed about tapering off the medication - has raynauds syndrome as well, cold insensitivity, has to wear gloves as well - on calcium and vitamin D supplementation - on vitamin B12 supplementation - following with nephrology - some concern about lupus nephropathy - follows and managed by Rheumatology, has been referred to new senior field engineer (Dr. Chakraborty??) as the one she had Lab Results Component Value Date VITB12 578 04/02/2022 Lab Results Component Value Date FOLATE >20.0 04/02/2022 Assessment & Plan (10/12/2022 10:56 AM HEAD OF QUALITY): - chronic, controlled - group home use of systemic steroid, since 2012 has been on prednisone - they have tried to wean her off prednisone over the years but symptoms of pain in fingers come back, no other significant joint pains other than hands - currently on Cellcept 500 mg BID, and 250 mg at noon - currently on Prednisone - group home use by another provider, her senior field engineer has discussed about tapering off the medication - has raynauds syndrome as well, cold insensitivity, has to wear gloves as well - on calcium and vitamin D supplementation - on vitamin B12 supplementation - following with nephrology - some concern about lupus nephropathy - follows and managed by Rheumathology Lab Results Component Value Date VITB12 578 04/02/2022 Lab Results Component Value Date FOLATE >20.0 04/02/2022 Assessment & Plan (08/11/2022 10:37 AM CDT): - chronic, controlled - 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, since 2012 has been on prednisone - they have tried to wean her off prednisone over the years but symptoms of pain in fingers come back, no other significant joint pains other than hands - currently on Cellcept 500 mg BID, and 250 mg at noon - currently on Prednisone - group home use by another provider - has raynauds syndrome as well, cold insensitivity, has to wear gloves as well - on calcium and vitamin D supplementation - on vitamin B12 supplementation - following with nephrology - some concern about lupus nephropathy - follows and managed by Rheumathology Assessment & Plan (12/08/2021 1:01 PM HEAD OF QUALITY): - chronic, controlled - initially was not clear diagnosis - group home use of systemic steroid, since 2012 has been on prednisone - they have tried to wean her off prednisone over the years but symptoms of pain in fingers come back, no other significant joint pains other than hands - currently on Cellcept 500 mg BID, and 250 mg at noon - currently on Prednisone - has raynauds - on calcium and vitamin D supplementation - on vitamin B12 supplementation - following with nephrology - some concern about lupus nephropathy Assessment & Plan (09/04/2021 12:50 PM CDT): - initially was not clear diagnosis - was on high doses of prednisone, since 2012 has been on prednisone - they have tried to wean her off prednisone over the years but symptoms of pain in fingers come back, no other significant joint pains other than hands - currently on Cellcept 500 mg BID, and 250 mg at noon - currently on Pernione 3 mg daily and up to 4-5 mg daily if needed - has raynauds - on calcium and vitamin D supplementation - on vitamin B12 supplementation Assessment & Plan (11/20/2019 10:13 AM HEAD OF QUALITY): SLE clinically stable on current med regimen. She notes increased pain/stiffness hands (?weather-related) as well as L knee (pain, swelling without injury; difficulty with stairs noted). Patient denies fever, rash, aphthous ulcers, dry eyes, dry mouth, hair loss, dysphagia, pleurisy, shortness of breath, nausea, vomiting, diarrhea, dysuria, hematuria, seizures, syncope. Raynaud's manageable. Will continue mycophenolate regimen; may need increase prednisone if articular symptoms continue to flare. Update lab as per orders. Assessment & Plan (08/09/2019 11:25 AM CDT): Patient with SLE clinically stable on MMF 1500mg regimen. Denies acute complaints. Joints pains have improved. Denies fever, rash, aphthous ulcers, hair loss, dysphagia, shortness of breath, nausea, vomiting, diarrhea, dysuria, hematuria, seizures, syncope. Would like to taper off prednisone. Can decrease to 2mg daily. Assessment & Plan (04/11/2019 10:55 AM CDT): SLE with continued musculoskeletal complaints, Raynaud's, and now R hip pain. Patient denies fever, rash, aphthous ulcers, dry eyes, dry mouth, hair loss, dysphagia, pleurisy, shortness of breath, nausea, vomiting, diarrhea, dysuria, hematuria, seizures, syncope. She tolerates mycophenolate without side effects reported. Recommend increase Cellcept to 1500 mg daily (divided dose). Update lab as per orders. Continue low dose prednisone (5 mg daily). Assessment & Plan (01/11/2019 12:44 PM HEAD OF QUALITY): Patient with SLE/RA overlap syndrome with early response to mycophenolate mofetil regimen, though she has been without same for the past week as insurance denied coverage. Since her Rx she has had increased pain, stiffness hands/wrists with associated swelling. We have appealed same given her clinical features of BOTH RA and SLE. Exam reveals moderate synovitis hands/wrist and effusion L knee. Patient denies fever, rash, aphthous ulcers, dry eyes, dry mouth, hair loss, dysphagia, pleurisy, shortness of breath, nausea, vomiting, diarrhea, dysuria, hematuria, seizures, syncope, Raynaud's. Will update lab as per orders. Hopefully CellCept will be approved on appeal as she feels she was improving with same. She does not wish to increase prednisone just yet for immediate benefit but will let us know if symptoms dictate same while awaiting mycophenolate mofetil authorization. Assessment & Plan (10/12/2018 2:01 PM HEAD OF QUALITY): SLE clinically stable since initiating CellCept x 3 weeks. Tolerates same though notes increased heartburn/reflux. Minimal relief with ranitidine. Patient denies fever, rash, aphthous ulcers, hair loss, dysphagia, pleurisy, shortness of breath, nausea, vomiting, diarrhea, dysuria, hematuria, seizures, syncope. Articular complaints stable. Raynaud's worse with colder weather. Update lab as per orders. Assessment & Plan (08/24/2018 3:21 PM CDT): Patient with SLE and inflammatory polyarthropathy complains of aphthous ulcers since increasing methotrexate to 20mg dose. Since discontinuing medication 2 weeks ago, ulcers have cleared. She did not see improvement in symptoms with dose increase. She also complains of night sweats x6 months. She will try magnesium, if not improvement will let us know. Per Dr. Cardona's note, patient to trial Cellcept if failed on MTX. Will discuss same. 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 Tolerating methotrexate 15 mg weekly without side effects. She has continued pain, stiffness hands/wrists, Patient denies fever, rash, aphthous ulcers, hair loss, dysphagia, pleurisy, shortness of breath, nausea, vomiting, diarrhea, dysuria, hematuria, seizures, syncope. She has not noted her Raynaud's particularly worse since amlodipine. Will update lab as per orders. Increase methotrexate to 8 x 2.5 mg tab weekly (20 mg weekly); continue folic acid. If methotrexate fails will consider trial of CellCept (mycophenolate mofetil). MYCOPHENOLATE MOFETIL (CELLCEPT) PATIENT INFORMATION: Mycophenolate Mofetil (CellCept) and Mycophenolate Sodium (Myfortic) are immunosuppressant drugs (a class of drugs that reduce the strength of the body s immune system) used in the treatment of several autoimmune diseases. Mycophenolate was used originally in the management of patients with organ transplants, but is now recommended in the treatment of many autoimmune diseases. Mycophenolate has been used to treat people with lupus (especially those with symptoms of kidney disease), rheumatoid arthritis (RA), vasculitis, inflammatory bowel disease such as Crohn's disease, inflammatory eye disease (such as uveitis (iritis) and scleritis), and some other kidney and skin disorders. HOW TO TAKE IT: Caregivers administering mycophenolate should wear gloves when handling it due to concern with risks and effects on the immune system. In adults, mycophenolate is typically taken twice daily for a total dose of 2 - 3 grams (2000 - 3000mg) per day, although this dosage may be reduced in people with underlying kidney problems. The dose usually is lower than two grams a day for children. Taking mycophenolate with food often helps prevent side effects such as nausea or stomach pain. Regular laboratory monitoring is required to monitor blood counts and your liver while taking mycophenolate. SIDE EFFECTS: Mycophenolate can lower the ability of your immune system to fight infections. If you develop symptoms of an infection while using this medication, you should stop it and contact your doctor. The most common side effects of mycophenolate are nausea and upset stomach. Other possible side effects include headaches, dizziness, difficulty sleeping, tremor, or rash. Prolonged use of mycophenolate may increase risk of some cancers such as lymphomas and skin cancers. TELL YOUR DOCTOR: You should notify your doctor if you have these symptoms while taking this medication: an infection (such as a fever or cough), diarrhea, or allergic reactions. Make sure to notify your other physicians while you are taking this drug. Mycophenolate has been associated with defects and loss. If you are or considering , let your doctor know before starting this medication. Women should discuss control with their primary care physicians or gynecologists. Breast-feeding should be avoided while taking this medication because the drug can enter breast milk. Be sure to talk with your doctor before receiving any vaccines or undergoing any surgeries while taking this medication. Live vaccines should be avoided while on this medication and you should discuss updating your vaccinations prior to starting this medication. These include the shingles vaccine; the nasal spray flu vaccine; and others such as the measles, mumps, rubella, and yellow fever vaccines. Notify your doctor if you bruise or bleed easily, or if you experience persistent or bloody diarrhea, shortness of breath, fevers or other signs of an infection. Mycophenolate usage should halt if there are signs of an infection. Updated January 2017 by Ross Mix MD and reviewed by the [employer] Committee on Communications and Marketing. This information is provided for general education only. Individuals should consult a qualified health care provider for professional medical advice, diagnosis and treatment of a medical or health condition. 2017 [employer] See more at: [email or web address] Future alternatives include Benlysta or Rituxan (given RA picture of current SLE manifestations). Assessment & Plan (05/23/2018 10:52 AM CDT): Clinically stable. Patient complains of increased arthralgias hands/wrists, feet with persistent synovitis on exam. Will increase methotrexate to 6 tablets (15 mg ) weekly. Continue folic acid as well as prednisone 5 mg daily. Update lab as per orders. Assessment & Plan (04/14/2018 12:46 PM CDT): She had initial evaluation with Dr. Cardona 02/03/2018. Recent lab results revealed evidence of active lupus, hand xrays showed severe osteoarthritis without erosions. She complains of same and reports experiencing more morning stiffness lasting over 1 hour. She presents to discuss further treatment options with immunosuppressive medications. Pertinent history include RA/SLE overlap syndrome, Raynaud's (without gangrene since initial presentation in 2013) with significant polyarthritis/synovitis of hands/wrists. She was managed previously by [facility] Rheumatology. In the past she was tried azathioprine but was poorly tolerated. Belimumab was discussed but she was not enthusiastic about starting same. She remains on prednisone and amlodipine/ECASA for symptom management. Patient agrees to start Methotrexate 7.5mg (3 tabs)weekly. Discussed medication benefits and side effects. Additional literature provided as well. Please follow up with Dr. Cardona in 4-6 weeks possible dosage adjustment and repeat labs. Assessment & Plan (02/03/2018 12:59 PM CDT): Patient with history of SLE, Raynaud's with significant polyarthritis/synovitis (hands/wrists) managed previously by [facility] Rheumatology. She has remained on low dose prednisone ( 5 mg daily) and amlodipine/ECASA. She has continued pain/stiffness bilateral hands/wrists with recurrent Raynaud's without gangrene since initial (2013) presentation. She has positive ALEXANDRA< SSA, SSB, MATERIAL SPECIALIST and periodic hypocomplementemia. A trial of azathioprine was poorly tolerated in the past. Belimumab was discussed but patient was not enthusiastic about same. She has not tried methotrexate or mycophenolate mofetil. Will update labs as per orders. Reviewed recent CBC, CMP, urinalysis (stable). X-ray bilateral hands/wrists to rule out erosions (negative 2013). Further management plans pend above. 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 - DEXA 10/2022 IMPRESSION: Based on the left femoral neck bone mineral density (T-score -2.1 ) the patient has low bone mass . - DXA 10/05: FINDINGS: Low bone mass AP LUMBAR SPINE L1-L4: T-score is -1.4 LEFT HIP: T-score is -1.4 Current femoral neck BMD - T-score is -2.1 - has repeat Bone density ordered by her Thermal Surfacing Machine Operator DXA on 05/2018 IMPRESSION: 1. LUMBAR SPINE T SCORE -1.5; OSTEOPENIA. T SCORE HAS DECREASED 0.3 AND BONE MINERAL DENSITY HAS DECREASED 4.3% COMPARED TO BASELINE ON 03/12/2014. 2. LEFT HIP T SCORE -2.1 NECK AND -1.3 TOTAL; OSTEOPENIA. TOTAL T SCORE HAS DECREASED 0.4 AND BONE MINERAL DENSITY HAS DECREASED 6.2% COMPARED TO BASELINE ON 03/04/2014. 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 - DXA 10/05: FINDINGS: Low bone mass AP LUMBAR SPINE L1-L4: T-score is -1.4 LEFT HIP: T-score is -1.4 Current femoral neck BMD - T-score is -2.1 - has repeat Bone density ordered by her Thermal Surfacing Machine Operator DXA on 05/2018 IMPRESSION: 1. LUMBAR SPINE T SCORE -1.5; OSTEOPENIA. T SCORE HAS DECREASED 0.3 AND BONE MINERAL DENSITY HAS DECREASED 4.3% COMPARED TO BASELINE ON 03/12/2014. 2. LEFT HIP T SCORE -2.1 NECK AND -1.3 TOTAL; OSTEOPENIA. TOTAL T SCORE HAS DECREASED 0.4 AND BONE MINERAL DENSITY HAS DECREASED 6.2% COMPARED TO BASELINE ON 03/04/2014. 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 LUMBAR SPINE T SCORE -1.5; OSTEOPENIA. T SCORE HAS DECREASED 0.3 AND BONE MINERAL DENSITY HAS DECREASED 4.3% COMPARED TO BASELINE ON 03/12/2014. 2. LEFT HIP T SCORE -2.1 NECK AND -1.3 TOTAL; OSTEOPENIA. TOTAL T SCORE HAS DECREASED 0.4 AND BONE MINERAL DENSITY HAS DECREASED 6.2% COMPARED TO BASELINE ON 03/04/2014. Assessment & Plan (12/08/2021 11:46 AM HEAD OF QUALITY): - chronic, not at goal - on vitamin D and calcium supplementation - DXA 10/05: FINDINGS: Low bone mass AP LUMBAR SPINE L1-L4: T-score is -1.4 LEFT HIP: T-score is -1.4 Current femoral neck BMD - T-score is -2.1 - continue current management DXA on 05/2018 IMPRESSION: 1. LUMBAR SPINE T SCORE -1.5; OSTEOPENIA. T SCORE HAS DECREASED 0.3 AND BONE MINERAL DENSITY HAS DECREASED 4.3% COMPARED TO BASELINE ON 03/12/2014. 2. LEFT HIP T SCORE -2.1 NECK AND -1.3 TOTAL; OSTEOPENIA. TOTAL T SCORE HAS DECREASED 0.4 AND BONE MINERAL DENSITY HAS DECREASED 6.2% COMPARED TO BASELINE ON 03/04/2014. Assessment & Plan (09/04/2021 12:54 PM CDT): - chronic - on vitamin D and calcium supplementation - most recent DXA on 05/2018 IMPRESSION: 1. LUMBAR SPINE T SCORE -1.5; OSTEOPENIA. T SCORE HAS DECREASED 0.3 AND BONE MINERAL DENSITY HAS DECREASED 4.3% COMPARED TO BASELINE ON 03/12/2014. 2. LEFT HIP T SCORE -2.1 NECK AND -1.3 TOTAL; OSTEOPENIA. TOTAL T SCORE HAS DECREASED 0.4 AND BONE MINERAL DENSITY HAS DECREASED 6.2% COMPARED TO BASELINE ON 03/04/2014. Assessment & Plan (11/20/2019 10:21 AM HEAD OF QUALITY): Bisphosphonate therapy avoided due to poor dental health and mandibular bone loss. Continue calcium and vitamin D supplements. A Guide to Calcium-Rich Foods We all know that milk is a great source of calcium, but you may be surprised by all the different foods you can work into your diet to reach your daily recommended amount of calcium. Use the guide below to get ideas of additional calcium-rich foods to add to your weekly shopping list. Produce Serving Size Estimated Calcium* Dariel greens, frozen 8 oz 360 mg Broccoli jose antonio 8 oz 200 mg Kale, frozen 8 oz 180 mg Soy Beans, green, boiled 8 oz 175 mg Bok [place], cooked, boiled 8 oz 160 mg Figs, dried 2 figs 65 mg Broccoli, fresh, cooked 8 oz 60 mg Oranges 1 whole 55 mg Seafood Serving Size Estimated Calcium* Sardines, canned with bones 3 oz 325 mg [place], canned with bones 3 oz 180 mg Shrimp, canned 3 oz 125 mg Dairy Serving Size Estimated Calcium* Ricotta, part-skim 4 oz 335 mg Yogurt, plain, low-fat 6 oz 310 mg Milk, skim, low-fat, whole 8 oz 300 mg Yogurt with fruit, low-fat 6 oz 260 mg Mozzarella, part-skim 1 oz 210 mg Cheddar 1 oz 205 mg Yogurt, Argentine 6 oz 200 mg Gu[place]ese Cheese 1 oz 195 mg Feta Cheese 4 oz 140 mg Cottage Cheese, 2% 4 oz 105 mg Frozen yogurt, vanilla 8 oz 105 mg Ice Cream, vanilla 8 oz 85 mg Parmesan 1 tbsp 55 mg Fortified Food Serving Size Estimated Calcium* [place] milk, rice milk or soy milk, fortified 8 oz 300 mg [place] juice and other fruit juices, fortified 8 oz 300 mg Tofu, prepared with calcium 4 oz 205 mg Waffle, frozen, fortified 2 pieces 200 mg Oatmeal, fortified 1 packet 140 mg [place] muffin, fortified 1 muffin 100 mg Cereal, fortified 8 oz 100-1,000 mg Other Serving Size Estimated Calcium* Mac & cheese, frozen 1 package 325 mg Pizza, cheese, frozen 1 serving 115 mg Pudding, chocolate, prepared with 2% milk 4 oz 160 mg Beans, baked, canned 4 oz 160 mg *The calcium content listed for most foods is estimated and can vary due to multiple factors. Check the food label to determine how much calcium is in a particular product. Assessment & Plan (08/09/2019 3:29 PM CDT): She is not a good candidate for bisphosphonate therapy due to previous dental extractions with plans for more in the future. Consider Raloxifene in addition to calcium and vitamin D supplements if dietary intake is not adequate. Lifestyle modifications are important for the prevention and treatment of bone loss. Lifestyle changes include weight bearing exercises (walking or lifting light weights), quitting smoking, not drinking excessively, and ensuring an adequate daily intake of calcium and vitamin D. If dietary intake is not adequate , then supplements may be taken. For good bone health you need 1200mg calcium daily between supplements and food. Every cup of milk and ounce of cheese contains 200mg calcium and a cup of yogurt may contain 300mg calcium. Most multivitamins contain up to 500mg calcium and supplements may contain from 200mg to 500mg calcium. Pay attention to elemental calcium on the label and to the number of pills a serving represents. Try not to take more than 500mg elemental calcium in supplements at one time and drink with full 16 ounces of water to prevent kidney stones and stress on the heart. Assessment & Plan (04/11/2019 10:58 AM CDT): Reviewed again role of bisphosphonate therapy and intention to start same (alendronate) pend lab review. Bisphosphonate Therapy Bisphosphonates are a group of medicines used to treat bone problems, such as thin or fragile bones. These medications are given to patients with abnormal bone density scans or to patients with a history of abnormal bone fractures in the hip, arm, wrist, or spine. The medications help prevent future bone fractures. They are commonly prescribed after calcium and vitamin D have failed to keep the bones strong. They are commonly used to treat bone disorders such as osteopenia, osteoporosis, Paget's disease, and metastatic bone disease. The family of Bisphosphonates includes: Oral: Alendronate (Fosamax), Risedronate (Actonel), and Ibandronate (Boniva). IV: Pamidronate, and Zoledronic acid (Reclast/Zometa). The bone cells in our bodies are constantly being slowly removed and replaced with new bone cells. This happens throughout our entire life. Osteoclasts are cells in our bodies that remove old bone and the osteoblast cells replace it with new bone. Bisphosphonates work by stopping the removal of old bone osteoclast activity. As we age and in certain diseases, the bone is actually being removed or damaged faster than your body is able to replace it. This leaves the bone thin/weak and much more likely to fracture with a significant impact or fall. Bisphosphonate medications damage/kill the osteoclasts and stop removal of old bone to try and preserve your bone strength. How to Take It Alendronate, Risedronate and Ibandronate are oral medications given either daily, weekly, or monthly depending on your other medical issues and the disease being treated. Typically, Alendronate is given 70mg by mouth once a week and Risedronate is given by mouth 35mg weekly or 150mg monthly. Ibandronate is given orally 150 mg once a month. The dose may vary depending on the disease being treated. These medications have to be taken first thing in the morning on an empty stomach with six - eight ounces of water. Do not take it with other beverages. You must remain upright (sitting or standing - no lying down) for 30 minutes after taking the medication. Do not take any additional medications, beverages, or food for 45 - 60 minutes after taking the medication. Discontinue after five - seven years if the fracture risk is low. Zolendronic acid is given through an IV at your doctor s office. The dose is 5mg given once a year, discontinuing after three - five years if your fracture risk is low. Calcium and vitamin D are commonly recommended to be taken with these medications. Side Effects Side effects to oral bisphosphonates include: muscle cramps/pain, pain with swallowing, heartburn, abdominal pain, nausea, headache, and/or rash. There is a rare risk of developing jaw or tooth pain, called osteonecrosis of the jaw. It is typically associated with trauma to the jaw (tooth extraction), history of malignancy and/or infections while on bisphosphonate therapy. It is recommended you have a good dental exam prior to starting these medications. Notify your doctor is you develop side effects to the medications. Side effects to Zoledronic acid include low blood pressure, dizziness, fatigue, headaches, muscle pain, weakness, GI symptoms (nausea and constipation), fever, and/or rash. These side effects may last a few days to a week after your infusion. There is a rare risk of developing jaw or tooth pain, called osteonecrosis of the jaw. It is typically associated with trauma to the jaw (tooth extraction), history of malignancy, and/or infections while on bisphosphonate therapy. It is recommended you have a good dental exam prior to starting these medications. Notify your doctor if you develop side effects to the medications. Abnormal fractures of the femur (thigh bone) have been associated with bisphosphonate therapy. This typically presents as thigh pain. Tell Your Doctor Bisphosphonate medications stay in your body for long periods of time even after stopping the medication. Discontinue therapy with bisphosphonates after three - five years of use if your fracture risk is low. Continue to follow up with your doctor for monitoring and repeat bone density scans about every two years. Prolonged use of bisphosphonates increases the risk of stress fractures in your thigh/hip. Tell your doctor if you develop any new pain in the thighs. You should not take this medication if you have kidney problems, difficulty swallowing, history of heartburn, low calcium levels, inability to stand or sit upright for at least 30 minutes. Do not take these medications if you are , , or may become . Remembering to take these medications regularly and as directed will increase your benefits from the medications. You can just stop the medication at any time, but please inform your doctor if you do. Assessment & Plan (10/12/2018 1:59 PM HEAD OF QUALITY): Reviewed role of bisphosphonate therapy (either oral alendronate or IV Reclast) once stable course of mycophenolate confirmed. 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 Will wait until methotrexate dose stabilized. Bisphosphonate Therapy Bisphosphonates are a group of medicines used to treat bone problems, such as thin or fragile bones. These medications are given to patients with abnormal bone density scans or to patients with a history of abnormal bone fractures in the hip, arm, wrist, or spine. The medications help prevent future bone fractures. They are commonly prescribed after calcium and vitamin D have failed to keep the bones strong. They are commonly used to treat bone disorders such as osteopenia, osteoporosis, Paget's disease, and metastatic bone disease. The family of Bisphosphonates includes: Oral: Alendronate (Fosamax), Risedronate (Actonel), and Ibandronate (Boniva). IV: Pamidronate, and Zoledronic acid (Reclast/Zometa). The bone cells in our bodies are constantly being slowly removed and replaced with new bone cells. This happens throughout our entire life. Osteoclasts are cells in our bodies that remove old bone and the osteoblast cells replace it with new bone. Bisphosphonates work by stopping the removal of old bone osteoclast activity. As we age and in certain diseases, the bone is actually being removed or damaged faster than your body is able to replace it. This leaves the bone thin/weak and much more likely to fracture with a significant impact or fall. Bisphosphonate medications damage/kill the osteoclasts and stop removal of old bone to try and preserve your bone strength. How to Take It Alendronate, Risedronate and Ibandronate are oral medications given either daily, weekly, or monthly depending on your other medical issues and the disease being treated. Typically, Alendronate is given 70mg by mouth once a week and Risedronate is given by mouth 35mg weekly or 150mg monthly. Ibandronate is given orally 150 mg once a month. The dose may vary depending on the disease being treated. These medications have to be taken first thing in the morning on an empty stomach with six - eight ounces of water. Do not take it with other beverages. You must remain upright (sitting or standing - no lying down) for 30 minutes after taking the medication. Do not take any additional medications, beverages, or food for 45 - 60 minutes after taking the medication. Discontinue after five - seven years if the fracture risk is low. Zolendronic acid is given through an IV at your doctor s office. The dose is 5mg given once a year, discontinuing after three - five years if your fracture risk is low. Calcium and vitamin D are commonly recommended to be taken with these medications. Side Effects Side effects to oral bisphosphonates include: muscle cramps/pain, pain with swallowing, heartburn, abdominal pain, nausea, headache, and/or rash. There is a rare risk of developing jaw or tooth pain, called osteonecrosis of the jaw. It is typically associated with trauma to the jaw (tooth extraction), history of malignancy and/or infections while on bisphosphonate therapy. It is recommended you have a good dental exam prior to starting these medications. Notify your doctor is you develop side effects to the medications. Side effects to Zoledronic acid include low blood pressure, dizziness, fatigue, headaches, muscle pain, weakness, GI symptoms (nausea and constipation), fever, and/or rash. These side effects may last a few days to a week after your infusion. There is a rare risk of developing jaw or tooth pain, called osteonecrosis of the jaw. It is typically associated with trauma to the jaw (tooth extraction), history of malignancy, and/or infections while on bisphosphonate therapy. It is recommended you have a good dental exam prior to starting these medications. Notify your doctor if you develop side effects to the medications. Abnormal fractures of the femur (thigh bone) have been associated with bisphosphonate therapy. This typically presents as thigh pain. Tell Your Doctor Bisphosphonate medications stay in your body for long periods of time even after stopping the medication. Discontinue therapy with bisphosphonates after three - five years of use if your fracture risk is low. Continue to follow up with your doctor for monitoring and repeat bone density scans about every two years. Prolonged use of bisphosphonates increases the risk of stress fractures in your thigh/hip. Tell your doctor if you develop any new pain in the thighs. You should not take this medication if you have kidney problems, difficulty swallowing, history of heartburn, low calcium levels, inability to stand or sit upright for at least 30 minutes. Do not take these medications if you are , , or may become . Remembering to take these medications regularly and as directed will increase your benefits from the medications. You can just stop the medication at any time, but please inform your doctor if you do. Assessment & Plan (05/23/2018 10:54 AM CDT): Images from the original note were not included. 04/2015: Raynaud's phenomenon without gangrene 09/17/2014 Assessment & Plan (12/16/2023 10:19 AM HEAD OF QUALITY): - chronic condition, worse with winter coming - uses gloves and avoid cold temperatures - also already on Diltiazem for Afib already - continue current management - follows with rheumatology - has known RA as well - continue current management Assessment & Plan (10/12/2022 10:51 AM HEAD OF QUALITY): - chronic condition, worse with winter coming - uses gloves and avoid cold temperatures - also already on Diltiazem for Afib already - continue current management - follows with rheumatology - has known RA as well Assessment & Plan (09/04/2021 12:53 PM CDT): - chronic codnition Assessment & Plan (11/20/2019 10:24 AM HEAD OF QUALITY): Stable. Cold avoidance discussed. Assessment & Plan (08/09/2019 11:22 AM CDT): No digital ulcers. Discussed warming techniques Assessment & Plan (04/11/2019 10:42 AM CDT): Mild flare swelling, tingling fingers with cold exposure discussed. No digital ulcers. Assessment & Plan (05/23/2018 10:58 AM CDT): Stable. Assessment & Plan (04/14/2018 1:07 PM CDT): Patient doing better now with the warmer weather. Continue amlodipine and low dose aspirin. Stage 3b chronic kidney disease 08/07/2011 Overview (08/27/2024): Following with Nephrology Has chronic anemia as well Assessment & Plan (05/02/2025 5:47 AM CDT): - chronic, stable/improved - established with nephrology and monitored closely - followed every 3-4 months - has history of renal artery stenosis as well - has renovascular hypertension - currently on lasix 40 mg daily The current medical regimen is effective; continue present plan and medications. Lab Results Component Value Date CREATININE 1.56 (H) 04/05/2025 BUNSER 37 (H) 04/05/2025 SODIUM 139 04/05/2025 POTASSIUM 3.9 04/05/2025 CO2 26 04/05/2025 Lab Results Component Value Date CREATININE 1.56 (H) 04/05/2025 CREATININE 1.57 (H) 02/01/2025 CREATININE 1.63 (H) 01/27/2025 CREATININE 1.74 (H) 01/26/2025 Assessment & Plan (12/28/2024 9:49 AM HEAD OF QUALITY): - chronic, stable - was worse during recent hospitalization - established with nephrology and monitored closely - followed every 3-4 months - has history of renal artery stenosis as well - has renovascular hypertension - currently on lasix 40 mg daily - continue current management at this time Lab Results Component Value Date CREATININE 2.07 (H) 12/12/2024 BUNSER 52 (H) 12/12/2024 SODIUM 137 12/12/2024 POTASSIUM 3.8 12/12/2024 CO2 31 12/12/2024 Lab Results Component Value Date CREATININE 2.07 (H) 12/12/2024 CREATININE 2.42 (H) 12/11/2024 CREATININE 2.33 (H) 12/10/2024 CREATININE 1.88 (H) 12/09/2024 Assessment & Plan (11/28/2024 12:10 PM HEAD OF QUALITY): - chronic, stable. Repeat BMP today. - established with nephrology and monitored closely - followed every 3-4 months - has history of renal artery stenosis as well - has renovascular hypertension Lab Results Component Value Date CREATININE 1.60 (H) 11/17/2024 BUNSER 36 (H) 11/17/2024 SODIUM 134 (L) 11/17/2024 POTASSIUM 3.9 11/17/2024 CO2 28 11/17/2024 Independently reviewed above labs indicating stable kidney function Assessment & Plan (08/14/2024 1:23 PM CDT): - chronic, stable - established with nephrology and monitored closely - followed every 3-4 months - has history of renal artery stenosis as well - has renovascular hypertension - currently on lasix 20 mg BID at this time --. being managed with nephrology - states has been told to take once daily and at times can do BID for 3-4 days for lower extremity edema - continue current management at this time Lab Results Component Value Date CREATININE 1.40 (H) 07/13/2024 BUNSER 25 07/13/2024 SODIUM 137 07/13/2024 POTASSIUM 3.9 07/13/2024 CO2 28 07/13/2024 Assessment & Plan (05/16/2024 10:45 AM CDT): - chronic, stable - established with nephrology and monitored closely - followed every 3-4 months - has history of renal artery stenosis as well - has renovascular hypertension - currently on lasix 20 mg BID at this time --. being managed with nephrology - states has been told to take once daily and at times can do BID for 3-4 days for lower extremity edema - continue current management at this time Lab Results Component Value Date CREATININE 1.54 (H) 02/18/2024 BUNSER 30 (H) 02/18/2024 SODIUM 136 02/18/2024 POTASSIUM 4.8 02/18/2024 CO2 29 02/18/2024 Assessment & Plan (12/16/2023 10:14 AM HEAD OF QUALITY): - chronic, stable - established with nephrology and monitored closely - has history of renal artery stenosis as well - has renovascular hypertension - currently on lasix 20 mg BID at this time --. being managed with nephrology - states has been told to take once daily and at times can do BID for 3-4 days for lower extremity edema - continue current management at this time Lab Results Component Value Date CREATININE 1.52 (H) 12/02/2023 BUNSER 30 (H) 06/25/2023 SODIUM 136 06/25/2023 POTASSIUM 3.6 06/25/2023 CO2 31 06/25/2023 Assessment & Plan (08/11/2023 11:01 AM CDT): - chronic, waxes and wanes, - established with nephrology and monitored closely - has history of renal artery stenosis as well - has renovascular hypertension - currently on lasix 20 mg BID at this time - has f/u appointment with Nephrology - continue current management at this time Lab Results Component Value Date CREATININE 1.64 (H) 06/25/2023 BUNSER 30 (H) 06/25/2023 SODIUM 136 06/25/2023 POTASSIUM 3.6 06/25/2023 CO2 31 06/25/2023 Assessment & Plan (04/26/2023 3:41 PM CDT): - chronic, waxes and wanes, mild elevation in creatinine over baseliine - established with nephrology - has history of renal artery stenosis as well - has renovascular hypertension - has f/u appointment with Nephrology Lab Results Component Value Date CREATININE 1.42 (H) 04/19/2023 CREATININE 1.46 (H) 04/19/2023 CREATININE 1.42 (H) 04/19/2023 BUNSER 28 (H) 04/19/2023 BUNSER 26 (H) 04/19/2023 BUNSER 28 (H) 04/19/2023 SODIUM 137 04/19/2023 SODIUM 133 (L) 04/19/2023 SODIUM 138 04/19/2023 POTASSIUM 4.0 04/19/2023 POTASSIUM 3.9 04/19/2023 POTASSIUM 4.2 04/19/2023 CO2 25 04/19/2023 CO2 25 04/19/2023 CO2 25 04/19/2023 Assessment & Plan (04/13/2023 10:29 AM CDT): - chronic, established with nephrology - has history of renal artery stenosis as well - has renovascular hypertension - has f/u appointment with Nephrology Assessment & Plan (11/20/2019 10:11 AM HEAD OF QUALITY): Lab Results Component Value Date GLUCOSE 103 10/02/2019 CALCIUM 9.5 10/02/2019 SODIUM 134 (L) 10/02/2019 POTASSIUM 4.1 10/02/2019 CO2 26 10/02/2019 CHLORIDE 97 10/02/2019 BUNSER 27 (H) 10/02/2019 CREATININE 1.30 (H) 10/02/2019 Be sure to maintain good hydration. Do not use any nonsteroidal antiinflammatory medications (including over the counter ibuprofen and naproxen) as these are kidney irritants. Assessment & Plan (08/09/2019 11:23 AM CDT): Renal condition is stable. Avoid NSAIDs such as naproxen (Aleve) and ibuprofen (Advil) which are kidney irritants. Increase fluid intake. Monitored by Dr. Plaza. Assessment & Plan (04/11/2019 10:56 AM CDT): Images from the original note were not included. Monitored by Dr. Tsering Plaza. Chemistry Component Value Date/Time SODIUM 137 02/22/2019 1013 POTASSIUM 3.9 02/22/2019 1013 POTASSIUM 4.4 07/14/2017 0920 CHLORIDE 98 02/22/2019 1013 CO2 29 02/22/2019 1013 BUNSER 25 02/22/2019 1013 CREATININE 1.10 02/22/2019 1013 GLUCOSE 99 02/22/2019 1013 Component Value Date/Time CALCIUM 9.6 02/22/2019 1013 ALKPHOS 59 02/22/2019 1013 AST 21 02/22/2019 1013 ALT 15 02/22/2019 1013 BILITOT 0.4 02/22/2019 1013 Assessment & Plan (01/11/2019 12:46 PM HEAD OF QUALITY): Chemistry Component Value Date/Time SODIUM 139 11/23/2018 0832 SODIUM 138 11/23/2018 0832 POTASSIUM 3.9 11/23/2018 0832 POTASSIUM 3.9 11/23/2018 0832 POTASSIUM 4.4 07/14/2017 0920 CHLORIDE 98 11/23/2018 0832 CHLORIDE 100 11/23/2018 0832 CO2 28 11/23/2018 0832 CO2 29 11/23/2018 0832 BUNSER 22 11/23/2018 0832 BUNSER 22 11/23/2018 0832 CREATININE 1.15 (H) 11/23/2018 0832 CREATININE 1.18 (H) 11/23/2018 0832 GLUCOSE 93 11/23/2018 0832 GLUCOSE 94 11/23/2018 0832 Component Value Date/Time CALCIUM 9.6 11/23/2018 0832 CALCIUM 9.6 11/23/2018 0832 ALKPHOS 70 10/22/20186 AST 20 10/22/20182145 ALT 14 10/22/2018 2146 BILITOT <0.2 10/22/20182145 Assessment & Plan (10/12/2018 1:57 PM HEAD OF QUALITY): Chemistry Component Value Date/Time SODIUM 137 09/06/2018 0918 SODIUM 136 09/06/201818 POTASSIUM 4.3 09/06/2018 0918 POTASSIUM 4.2 09/06/2018 09 POTASSIUM 4.4 07/14/2017 0920 CHLORIDE 100 09/06/2018 0918 CHLORIDE 99 09/06/2018 0918 CO2 28 09/06/2018 0918 CO2 27 09/06/2018 0918 BUNSER 24 09/06/2018 0918 BUNSER 24 09/06/2018 0918 CREATININE 1.34 (H) 09/06/2018 09 CREATININE 1.29 (H) 09/06/2018 0918 GLUCOSE 98 09/06/2018 0918 GLUCOSE 96 09/06/2018 09 Component Value Date/Time CALCIUM 9.7 09/06/2018 0918 CALCIUM 9.5 09/06/2018 0918 ALKPHOS 61 08/25/2018 0810 AST 23 08/25/2018 0810 ALT 16 08/25/2018 0810 BILITOT 0.3 08/25/2018 0810 Be sure to maintain good hydration. Do not use any nonsteroidal antiinflammatory medications (including over the counter ibuprofen and naproxen) as these are kidney irritants. Assessment & Plan (06/23/2018 1:31 PM CDT): Lab Results Component Value Date CREATININE 1.13 (H) 05/23/2018 There is a slight decline in kidney function which can be monitored. Be sure to maintain good hydration. Do not use any nonsteroidal antiinflammatory medications (including over the counter ibuprofen and naproxen) as these are kidney irritants. Assessment & Plan (05/23/2018 10:58 AM CDT): Lab Results Component Value Date GLUCOSE 89 04/18/2018 GLUCOSE 92 04/18/2018 CALCIUM 9.3 04/18/2018 CALCIUM 9.3 04/18/2018 SODIUM 138 04/18/2018 SODIUM 137 04/18/2018 POTASSIUM 3.6 04/18/2018 POTASSIUM 3.5 04/18/2018 CO2 28 04/18/2018 CO2 28 04/18/2018 CHLORIDE 97 04/18/2018 CHLORIDE 97 04/18/2018 BUNSER 21 04/18/2018 BUNSER 21 04/18/2018 CREATININE 1.19 (H) 04/18/2018 CREATININE 1.25 (H) 04/18/2018 Stable. Continue to avoid ALL nonsteroidal antiinflammatory medications Assessment & Plan (04/14/2018 1:06 PM CDT): Renal condition is stable. Followed by Dr. Plaza Assessment & Plan (02/03/2018 6:55 PM CDT): Stable. Pure hypercholesterolemia 08/07/2011 Assessment & Plan (05/02/2025 5:46 AM CDT): - chronic condition, well controlled - currently on Pravastatin 40 mg daily - goal LDL <70 given known CAD - most recent LDL as shown below - recheck labs, order placed with results as shown below The current medical regimen is effective; continue present plan and medications. Lab Results Component Value Date CHOL 167 04/30/2025 CHOL 160 05/16/2024 CHOL 145 04/19/2023 CHOL 140 04/19/2023 Lab Results Component Value Date HDL 80 04/30/2025 HDL 79 05/16/2024 HDL 73 04/19/2023 HDL 70 04/19/2023 Lab Results Component Value Date LDLCALC 73 04/30/2025 LDLCALC 66 05/16/2024 LDLCALC 59 04/19/2023 LDLCALC 57 04/19/2023 LDL 57 04/15/2016 LDL 65 06/29/2014 LDLDIRECT 54 11/19/2012 Lab Results Component Value Date TRIG 76 04/30/2025 TRIG 73 05/16/2024 TRIG 64 04/19/2023 TRIG 63 04/19/2023 Assessment & Plan (12/28/2024 9:40 AM HEAD OF QUALITY): - chronic condition, well controlled - currently on Pravastatin 40 mg daily - goal LDL <70 given known CAD - most recent LDL as shown below The current medical regimen is effective; continue present plan and medications. Lab Results Component Value Date CHOL 160 05/16/2024 CHOL 145 04/19/2023 CHOL 140 04/19/2023 Lab Results Component Value Date HDL 79 05/16/2024 HDL 73 04/19/2023 HDL 70 04/19/2023 Lab Results Component Value Date LDLCALC 66 05/16/2024 LDLCALC 59 04/19/2023 LDLCALC 57 04/19/2023 LDL 57 04/15/2016 LDL 65 06/29/2014 LDLDIRECT 54 11/19/2012 Lab Results Component Value Date TRIG 73 05/16/2024 TRIG 64 04/19/2023 TRIG 63 04/19/2023 Assessment & Plan (08/14/2024 1:30 PM CDT): - chronic condition, well controlled - currently on Pravastatin 40 mg daily - goal LDL <70 given known CAD - most recent LDL as shown below - continue with current therapy Lab Results Component Value Date CHOL 160 05/16/2024 CHOL 145 04/19/2023 CHOL 140 04/19/2023 Lab Results Component Value Date HDL 79 05/16/2024 HDL 73 04/19/2023 HDL 70 04/19/2023 Lab Results Component Value Date LDLCALC 66 05/16/2024 LDLCALC 59 04/19/2023 LDLCALC 57 04/19/2023 LDL 57 04/15/2016 LDL 65 06/29/2014 LDLDIRECT 54 11/19/2012 Lab Results Component Value Date TRIG 73 05/16/2024 TRIG 64 04/19/2023 TRIG 63 04/19/2023 Assessment & Plan (05/16/2024 10:46 AM CDT): - chronic condition, well controlled - currently on Pravastatin 40 mg daily - goal LDL <70 given known CAD - most recent LDL as shown below - continue with current therapy Lab Results Component Value Date CHOL 145 04/19/2023 CHOL 140 04/19/2023 CHOL 138 02/18/2022 Lab Results Component Value Date HDL 73 04/19/2023 HDL 70 04/19/2023 HDL 68 02/18/2022 Lab Results Component Value Date LDLCALC 59 04/19/2023 LDLCALC 57 04/19/2023 LDLCALC 55 02/18/2022 LDL 57 04/15/2016 LDL 65 06/29/2014 LDLDIRECT 54 11/19/2012 Lab Results Component Value Date TRIG 64 04/19/2023 TRIG 63 04/19/2023 TRIG 74 02/18/2022 Assessment & Plan (12/16/2023 10:04 AM HEAD OF QUALITY): - chronic condition, well controlled - currently on Pravastatin 40 mg daily - goal LDL <70 given known CAD - most recent LDL as shown below - continue with current therapy Lab Results Component Value Date CHOL 145 04/19/2023 CHOL 140 04/19/2023 CHOL 138 02/18/2022 Lab Results Component Value Date HDL 73 04/19/2023 HDL 70 04/19/2023 HDL 68 02/18/2022 Lab Results Component Value Date LDLCALC 59 04/19/2023 LDLCALC 57 04/19/2023 LDLCALC 55 02/18/2022 LDL 57 04/15/2016 LDL 65 06/29/2014 LDLDIRECT 54 11/19/2012 Lab Results Component Value Date TRIG 64 04/19/2023 TRIG 63 04/19/2023 TRIG 74 02/18/2022 Assessment & Plan (08/11/2023 11:02 AM CDT): - chronic condition, well controlled - currently on Pravastatin 40 mg daily - goal LDL <70 given known CAD - most recent LDL as shown below - continue with current therapy Lab Results Component Value Date CHOL 145 04/19/2023 CHOL 140 04/19/2023 CHOL 138 02/18/2022 Lab Results Component Value Date HDL 73 04/19/2023 HDL 70 04/19/2023 HDL 68 02/18/2022 Lab Results Component Value Date LDLCALC 59 04/19/2023 LDLCALC 57 04/19/2023 LDLCALC 55 02/18/2022 LDL 57 04/15/2016 LDL 65 06/29/2014 LDLDIRECT 54 11/19/2012 Lab Results Component Value Date TRIG 64 04/19/2023 TRIG 63 04/19/2023 TRIG 74 02/18/2022 Assessment & Plan (04/26/2023 3:40 PM CDT): - chronic condition, well controlled - currently on Pravastatin 40 mg daily - goal LDL <70 given known CAD - most recent LDL as shown below - continue with current therapy Lab Results Component Value Date CHOL 145 04/19/2023 CHOL 140 04/19/2023 CHOL 138 02/18/2022 Lab Results Component Value Date HDL 73 04/19/2023 HDL 70 04/19/2023 HDL 68 02/18/2022 Lab Results Component Value Date LDLCALC 59 04/19/2023 LDLCALC 57 04/19/2023 LDLCALC 55 02/18/2022 LDL 57 04/15/2016 LDL 65 06/29/2014 LDLDIRECT 54 11/19/2012 Lab Results Component Value Date TRIG 64 04/19/2023 TRIG 63 04/19/2023 TRIG 74 02/18/2022 Assessment & Plan (04/13/2023 10:40 AM CDT): - chronic codnition - currently on Pravastatin 40 mg daily - goal LDL <70 given known CAD - most recent LDL as shown below, recheck labs, order placed - continue with current therapy Lab Results Component Value Date CHOL 138 02/18/2022 CHOL 127 03/13/2021 CHOL 116 11/01/2020 Lab Results Component Value Date HDL 68 02/18/2022 HDL 61 03/13/2021 HDL 61 11/01/2020 Lab Results Component Value Date LDLCALC 55 02/18/2022 LDLCALC 53 03/13/2021 LDLCALC 44 11/01/2020 LDL 57 04/15/2016 LDL 65 06/29/2014 LDLDIRECT 54 11/19/2012 Lab Results Component Value Date TRIG 74 02/18/2022 TRIG 67 03/13/2021 TRIG 53 11/01/2020 Assessment & Plan (08/11/2022 10:20 AM CDT): - chronic codnition - currently on Pravastatin 40 mg daily - goal LDL <70 given known CAD - most recent LDL as shown below - continue with current therapy Lab Results Component Value Date CHOL 138 02/18/2022 CHOL 127 03/13/2021 CHOL 116 11/01/2020 Lab Results Component Value Date HDL 68 02/18/2022 HDL 61 03/13/2021 HDL 61 11/01/2020 Lab Results Component Value Date LDLCALC 55 02/18/2022 LDLCALC 53 03/13/2021 LDLCALC 44 11/01/2020 LDL 57 04/15/2016 LDL 65 06/29/2014 LDLDIRECT 54 11/19/2012 Lab Results Component Value Date TRIG 74 02/18/2022 TRIG 67 03/13/2021 TRIG 53 11/01/2020 Assessment & Plan (06/09/2022 10:46 AM CDT): - chronic codnition - currently on Pravastatin 40 mg daily - goal LDL <70 given known CAD - most recent LDL as shown below - continue with current therapy Lab Results Component Value Date LDLCALC 55 02/18/2022 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 Overview (02/03/2018): Overview: 2007 amaurosis fugax -> carotid Duplex negative; temporal artery biopsy negative ~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 Assessment & Plan (09/04/2021 12:41 PM CDT): - evaluated for giant cell arteritis - not sure for the result - there was some concern 2007 - had carotid duplex which was negative, temporal artery biopsy was negative - potential for recurrent amaurosis Atherosclerosis of [place] co ronary artery of [place] heart without angina pectoris 01/06/2011 Assessment & Plan (08/27/2024 3:55 AM CDT): - chronic condition, well controlled - follows with cardiology - currently on Aspirin 81 mg daily, Pravastatin 40 mg daily and Metoprolol - hx of rheumatic fever at age 8 and was treated with penicillin until age 16 - former smoker, quit in 2010 - no hx of [place], CVA - 2 hx of heart cath - Overview: 10/19 cath: LV 180/20-24, RA 3, PA 35/12, [email or web address], significant systolic bridging mid LAD, 40-50% proximal D1, EF 80%, no MR 01/23 stress nuclear 6:00--61% maximal heart rate, no ischemia, EF 86% 07/29 stress nuclear 5:50--73% maximal heart rate, no ischemia, EF 75% - continue with current therapy Lab Results Component Value Date LDLCALC 66 05/16/2024 Assessment & Plan (10/12/2022 11:01 AM HEAD OF QUALITY): - chronic condition, well controlled - follows with cardiology - currently on Aspirin 81 mg daily - hx of rheumatic fever at age 8 and was treated with penicillin until age 16 - on pravastatin 40 mg daily - former smoker, quit in 2010 - no hx of [place], CVA - 2 hx of heart cath - Overview: 10/19 cath: LV 180/20-24, RA 3, PA 35/12, [email or web address], significant systolic bridging mid LAD, 40-50% proximal D1, EF 80%, no MR 3/11 stress nuclear 6:00--61% maximal heart rate, no ischemia, EF 86% 14 stress nuclear 5:50--73% maximal heart rate, no ischemia, EF 75% - continue with current therapy Reports has had US Carotids - will review records Lab Results Component Value Date LDLCALC 55 02/18/2022 Assessment & Plan (08/11/2022 10:42 AM CDT): - chronic condition, well controlled - follows with cardiology - currently on Aspirin 81 mg daily - hx of rheumatic fever at age 8 and was treated with penicillin until age 16 - on pravastatin 40 mg daily - former smoker, quit in 2010 - no hx of [place], CVA - 2 hx of heart cath - Overview: 10/19 cath: LV 180/20-24, RA 3, PA 35/12, [email or web address], significant systolic bridging mid LAD, 40-50% proximal D1, EF 80%, no MR 3/11 stress nuclear 6:00--61% maximal heart rate, no ischemia, EF 86% 14 stress nuclear 5:50--73% maximal heart rate, no ischemia, EF 75% - continue with current therapy Lab Results Component Value Date LDLCALC 55 02/18/2022 Assessment & Plan (06/09/2022 10:43 AM CDT): - chronic condition, well controlled - follows with cardiology, will request records for us - currently on Aspirin 81 mg daily - hx of rheumatic fever at age 8 and was treated with penicillin until age 16 - on pravastatin 40 mg daily - former smoker, quit in 2010 - no hx of [place], CVA - 2 hx of heart cath - Overview: 10/19 cath: LV 180/20-24, RA 3, PA 35/12, [email or web address], significant systolic bridging mid LAD, 40-50% proximal D1, EF 80%, no MR 3/11 stress nuclear 6:00--61% maximal heart rate, no ischemia, EF 86% 07/29 stress nuclear 5:50--73% maximal heart rate, no ischemia, EF 75% - continue with current therapy Lab Results Component Value Date LDLCALC 55 02/18/2022 Assessment & Plan (03/06/2022 9:49 AM CDT): - chronic condition, well controlled - follows with cardiology, will request records for us - currently on Aspirin 81 mg daily - hx of rheumatic fever at age 8 and was treated with penicillin until age 16 - on pravastatin 40 mg daily - former smoker, quit in 2010 - no hx of IL, CVA - 2 hx of heart cath - Overview: 10/19 cath: LV 180/20-24, RA 3, PA 35/12, [email or web address], significant systolic bridging mid LAD, 40-50% proximal D1, EF 80%, no MR 3/11 stress nuclear 6:00--61% maximal heart rate, no ischemia, EF 86% 07/29 stress nuclear 5:50--73% maximal heart rate, no ischemia, EF 75% - continue with current therapy Assessment & Plan (09/04/2021 12:35 PM CDT): - follows with cardiology - currently on Aspirin 81 mg daily - hx of rheumatic fever at age 8 and was treated with penicillin until age 16 - on pravastatin 40 mg daily - former smoker, quit in 2010 - no hx of [place], CVA - 2 hx of heart cath - Overview: 10/19 cath: LV 180/20-24, RA 3, PA 35/12, [email or web address], significant systolic bridging mid LAD, 40-50% proximal D1, EF 80%, no MR 3/11 stress nuclear 6:00--61% maximal heart rate, no ischemia, EF 86% 07/29 stress nuclear 5:50--73% maximal heart rate, no ischemia, EF 75% Assessment & Plan (08/09/2019 3:21 PM CDT): Stable. Management per Dr. 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 No definite evidence of hemodynamically significant renal artery stenosis although the proximal renal artery could not be visualized well on either side because of bowel gas. 2. Right renal atrophy. 3. Increased echogenicity in both kidneys suggesting renal parenchymal disease. 4. Additional details above. Overview: 09/19 echo: EF 70%, mild MR, moderate TR 03/21 echo: EF 65%, mild MR/TR, PA 32 07/26 24-hour urine metanephrines, normetanephrines, VMA, 5'HIAA normal Lab Results Component Value Date POTASSIUM 4.8 02/18/2024 Assessment & Plan (12/16/2023 10:16 AM HEAD OF QUALITY): BP Readings from Last 3 Encounters: 12/16/23 148/90 08/11/23 138/78 07/13/23 122/90 - chronic, suboptimal control - hx of resistant hypertension - hx of Left renal stent placement for renal artery stenosis, follows with nephrology get imaging once every 1.5 years - currently Diltiazem 240 mg daily, metoprolol succinate 50 mg daily - currently on lasix 20 mg BID PRN for lower extremity edema - 07/26 - 24-hour urine metanephrines, normetanephrines, VMA, 5'HIAA normal - continue management with nephrology US Renal Doppler 06/06 IMPRESSION: 1. No definite evidence of hemodynamically significant renal artery stenosis although the proximal renal artery could not be visualized well on either side because of bowel gas. 2. Right renal atrophy. 3. Increased echogenicity in both kidneys suggesting renal parenchymal disease. 4. Additional details above. Overview: 09/19 echo: EF 70%, mild MR, moderate TR 03/21 echo: EF 65%, mild MR/TR, PA 32 07/26 24-hour urine metanephrines, normetanephrines, VMA, 5'HIAA normal Lab Results Component Value Date POTASSIUM 3.6 06/25/2023 Assessment & Plan (08/11/2023 11:03 AM CDT): BP Readings from Last 3 Encounters: 08/11/23 138/78 07/13/23 122/90 06/19/23 99/79 - chronic, suboptimal control - hx of resistant hypertension - hx of Left renal stent placement for renal artery stenosis, follows with nephrology get imaging once every 1.5 years - currently Diltiazem 240 mg daily, metoprolol succinate 50 mg daily - currently on lasix 20 mg BID - 07/26 - 24-hour urine metanephrines, normetanephrines, VMA, 5'HIAA normal - continue management with nephrology US Renal Doppler 06/06 IMPRESSION: 1. No definite evidence of hemodynamically significant renal artery stenosis although the proximal renal artery could not be visualized well on either side because of bowel gas. 2. Right renal atrophy. 3. Increased echogenicity in both kidneys suggesting renal parenchymal disease. 4. Additional details above. Overview: 09/19 echo: EF 70%, mild MR, moderate TR 03/21 echo: EF 65%, mild MR/TR, PA 32 911 24-hour urine metanephrines, normetanephrines, VMA, 5'HIAA normal Lab Results Component Value Date POTASSIUM 3.6 06/25/2023 Assessment & Plan (05/26/2023 11:05 AM CDT): BP Readings from Last 3 Encounters: 05/26/23 142/76 05/19/23 148/70 05/04/23 154/92 - chronic, suboptimal control - hx of resistant hypertension - hx of Left renal stent placement for renal artery stenosis, follows with nephrology get imaging once every 1.5 years - currently Diltiazem 240 mg daily, metoprolol succinate 25mg daily - recently started taking lasix 20 mg daily which she had PRN before this, to let her completion engineer know about the use and progression - continue management with nephrology - 07/26 - 24-hour urine metanephrines, normetanephrines, VMA, 5'HIAA normal Overview: 09/19 echo: EF 70%, mild MR, moderate TR 03/21 echo: EF 65%, mild MR/TR, PA 32 07/26 24-hour urine metanephrines, normetanephrines, VMA, 5'HIAA normal Lab Results Component Value Date POTASSIUM 3.7 05/18/2023 Assessment & Plan (04/26/2023 3:40 PM CDT): BP Readings from Last 3 Encounters: 04/26/23 124/68 04/13/23 160/78 10/12/22 148/71 - chronic, well controlled - hx of resistant hypertension - hx of Left renal stent placement for renal artery stenosis, follows with nephrology get imaging once every 1.5 years - currently Diltiazem 240 mg daily, metoprolol succinate 25mg daily - continue management with nephrology, followed every 3 months - 07/26 - 24-hour urine metanephrines, normetanephrines, VMA, 5'HIAA normal Overview: 09/19 echo: EF 70%, mild MR, moderate TR 03/21 echo: EF 65%, mild MR/TR, PA 32 07/26 24-hour urine metanephrines, normetanephrines, VMA, 5'HIAA normal Lab Results Component Value Date POTASSIUM 4.0 04/19/2023 POTASSIUM 3.9 04/19/2023 POTASSIUM 4.2 04/19/2023 Assessment & Plan (04/13/2023 10:13 AM CDT): BP Readings from Last 3 Encounters: 04/13/23 160/80 10/12/22 148/71 08/11/22 143/80 - chronic, not well controlled - hx of resistant hypertension - hx of Left renal stent placement for renal artery stenosis, follows with nephrology get imaging once every 1.5 years - currently Diltiazem 240 mg daily, metoprolol succinate 25mg daily - continue management with nephrology, followed every 3 months - 07/26 - 24-hour urine metanephrines, normetanephrines, VMA, 5'HIAA normal Overview: 09/19 echo: EF 70%, mild MR, moderate TR 03/21 echo: EF 65%, mild MR/TR, PA 32 9/11 24-hour urine metanephrines, normetanephrines, VMA, 5'HIAA normal Lab Results Component Value Date POTASSIUM 4.2 01/07/2023 Assessment & Plan (10/12/2022 10:53 AM HEAD OF QUALITY): - chronic, not well controlled - hx of resistant hypertension - hx of Left renal stent placement for renal artery stenosis, follows with nephrology get imaging once every 1.5 years - currently Diltiazem 240 mg daily, metoprolol succinate 25mg daily - continue management with nephrology, followed every 3 months - 07/26 - 24-hour urine metanephrines, normetanephrines, VMA, 5'HIAA normal Overview: 09/19 echo: EF 70%, mild MR, moderate TR 03/21 echo: EF 65%, mild MR/TR, PA 32 07/26 24-hour urine metanephrines, normetanephrines, VMA, 5'HIAA normal Lab Results Component Value Date POTASSIUM 4.0 08/06/2022 POTASSIUM 3.9 08/06/2022 Assessment & Plan (08/11/2022 10:34 AM CDT): - chronic, well controlled - hx of resistant hypertension - hx of Left renal stent placement, follows with nephrology get imaging once every 1.5 years - currently Diltiazem 240 mg daily, metoprolol succinate 25mg daily - 07/26 - 24-hour urine metanephrines, normetanephrines, VMA, 5'HIAA normal Overview: 09/19 echo: EF 70%, mild MR, moderate TR 03/21 echo: EF 65%, mild MR/TR, PA 32 /11 24-hour urine metanephrines, normetanephrines, VMA, 5'HIAA normal Lab Results Component Value Date POTASSIUM 4.0 08/06/2022 POTASSIUM 3.9 08/06/2022 Assessment & Plan (06/09/2022 10:51 AM CDT): - chronic, well controlled - hx of resistant hypertension - hx of Left renal stent placement, follows with nephrology get imaging once every 1.5 years - currently Diltiazem 240 mg daily, metoprolol succinate 25mg daily - 07/26 - 24-hour urine metanephrines, normetanephrines, VMA, 5'HIAA normal Overview: 09/19 echo: EF 70%, mild MR, moderate TR 03/21 echo: EF 65%, mild MR/TR, PA 32 07/26 24-hour urine metanephrines, normetanephrines, VMA, 5'HIAA normal Lab Results Component Value Date POTASSIUM 3.8 02/18/2022 Assessment & Plan (09/04/2021 12:44 PM CDT): - hx of resistant hypertension - follows with nephrology - currently Diltiazem 240 mg daily, metoprolol succinate 25mg daily - hx of Left renal stent placement - 07/26 - 24-hour urine metanephrines, normetanephrines, VMA, 5'HIAA normal Assessment & Plan (11/20/2019 10:11 AM HEAD OF QUALITY): Vitals BP 140/84 (BP Location: Right arm, Patient Position: Sitting) Pulse 64 Temp 36.6 C (97.9 F) (Oral) Resp 16 Ht 154 cm (5' 0.63) Wt 44 kg (96 lb 14.4 oz) BMI 18.53 kg/m Denies headache, dizziness, chest pain, palpitations, shortness of breath, edema, orthopnea, PND. Assessment & Plan (08/09/2019 11:21 AM CDT): Vitals BP 130/60 Pulse 59 Resp 14 Ht 154 cm (5' 0.63) Wt 44.9 kg (99 lb) BMI 18.93 kg/m Denies angina, dyspnea, orthopnea, PND, palpitations, tachycardia, pre-syncope, syncope, or claudication. Assessment & Plan (04/11/2019 10:41 AM CDT): Vitals BP 140/70 Pulse 68 Temp 36.7 C (98 F) Resp 16 Ht 154 cm (5' 0.63) Wt 44.8 kg (98 lb 11.2 oz) BMI 18.88 kg/m Denies headache, dizziness, chest pain, palpitations, shortness of breath, edema, orthopnea, PND. Assessment & Plan (01/11/2019 12:45 PM HEAD OF QUALITY): Vitals BP 148/82 (BP Location: Left arm, Patient Position: Sitting) Pulse 68 Temp 36.6 C (97.9 F) (Oral) Resp 18 Ht 154 cm (5' 0.63) Wt 44.5 kg (98 lb 1.6 oz) BMI 18.76 kg/m Denies headache, dizziness, chest pain, palpitations, shortness of breath, edema, orthopnea, PND. Assessment & Plan (10/12/2018 1:56 PM HEAD OF QUALITY): Vitals BP 110/64 (BP Location: Left arm, Patient Position: Sitting) Pulse 76 Temp 36.7 C (98.1 F) (Oral) Resp 16 Ht 156.2 cm (5' 1.5) Wt 44.5 kg (98 lb) SpO2 99% BMI 18.22 kg/m Denies headache, dizziness, chest pain, palpitations, shortness of breath, edema, orthopnea, PND. Assessment & Plan (06/23/2018 1:18 PM CDT): Vitals: 06/23/18 1242 BP: 150/80 Pulse: 78 Resp: 16 Temp: 36.8 C (98.2 F) Denies headache, dizziness, chest pain, shortness of breath, edema, orthopnea, PND. Recently switched by cardiology (Bridget) from amlodipine to diltiazem for BP control. She will discuss continued BP elevation with him. Assessment & Plan (05/23/2018 8:33 PM CDT): . Vitals: 05/23/18 1002 BP: 120/72 Pulse: 76 Resp: 16 Temp: 36.9 C (98.5 F) Well controlled. Denies headache, dizziness, chest pain, palpitations, shortness of breath, edema, orthopnea, PND. Continue same. History of rheumatic fever 01/06/2011 Overview (07/17/2022): Overview: Age 89 years old Assessment & Plan (05/23/2018 10:49 AM CDT): Systolic murmur increased intensity. Recent complaints of increased dyspnea noted. Updated echocardiogram and stress test scheduled per Dr. Gill. Paroxysmal atrial fibrillation 01/06/2011 Overview (04/30/2025): Follows with Cardiology and Electrophysiology Assessment & Plan (05/02/2025 5:46 AM CDT): - chronic, improved with recent ablation - s/p recent afib in [facility] with cardioversion about 3 weeks ago, had an illness that lead to it --> - s/p ablation on April 12, by Dr. Mcintosh at [facility] - diagnosis around 1996 - s/p cardioversion around August 2023 - currently on Eliquis 2.5 mg BID for anticoagulation per Cardiology - currently on Metoprolol XL 50 mg daily, Diltiazem 240 mg daily - continue current therapy - follows with cardiology - Dr. Gill - follows and managed by Electrophysiology - Dr. Mcintosh The current medical regimen is effective; continue present plan and medications. Echo done at outside facility in the past, last at [facility] in 2022 Lab Results Component Value Date TSH 2.03 11/17/2024 Assessment & Plan (12/28/2024 9:46 AM HEAD OF QUALITY): - chronic, not at goal with recent Afib in RVR and hospitalization - s/p recent afib in RVR with cardioversion about 3 weeks ago, had an illness that lead to it --> scheduled for ablation on February [address] [facility] - diagnosis around 1996 - had been on propafenone since 1996 -2020, started after admission for arrhythmia after a colonoscopy prep - s/p cardioversion around August 2023 - currently on Eliquis 2.5 mg BID for anticoagulation per Cardiology - currently on Metoprolol XL 50 mg daily, Diltiazem 240 mg daily - continue current therapy - follows with cardiology - Dr. Gill - follows and managed by Electrophysiology - Dr. Mcintosh Echo done at outside facility in the past, last at [facility] in 2022 Lab Results Component Value Date TSH 2.03 11/17/2024 Assessment & Plan (11/28/2024 12:09 PM HEAD OF QUALITY): - chronic, controlled - diagnosis around 1996 - had been on propafenone since 1996, started after admission for arrhythmia after a colonoscopy prep - s/p cardioversion around August 2023 which has helped her - currently on Eliquis 2.5 mg BID for anticoagulation per Cardiology - currently on Metoprolol XL 50 mg daily, Diltiazem 240 mg daily - continue current therapy - follows with cardiology Dr. Gill - follows and managed by Electrophysiology Dr. Mcintosh Advise patient to reach out to that specialists for a sooner appointment than January 04, 2025 as scheduled due to current CHF exacerbation Echo done at outside facility in the past, last at [facility] in 2022 Lab Results Component Value Date TSH 2.03 11/17/2024 Assessment & Plan (08/14/2024 1:19 PM CDT): - chronic, controlled - diagnosis around 1996 - had been on propafenone since 1996, started after admission for arrhythmia after a colonoscopy prep - s/p cardioversion around August 2023 which has helped her - currently on Eliquis 2.5 mg BID for anticoagulation per Cardiology - currently on Metoprolol XL 50 mg daily, Diltiazem 240 mg daily - continue current therapy - follows with cardiology - Dr. Gill - follows and managed by Electrophysiology - Dr. Mcintosh Echo done at outside facility in the past Lab Results Component Value Date TSH 2.43 05/16/2024 Assessment & Plan (05/16/2024 10:48 AM CDT): - chronic, controlled - diagnosis around 1996 - had been on propafenone since 1996, started after admission for arrhythmia after a colonoscopy prep - s/p cardioversion around August 2023 which has helped her - currently on Eliquis 2.5 mg BID for anticoagulation per Cardiology - currently on Metoprolol XL 50 mg daily, Diltiazem 240 mg daily - continue current therapy - follows with cardiology - Dr. Gill - follows and managed by Electrophysiology - Dr. Mcintosh Echo done at outside facility in the past Lab Results Component Value Date TSH 2.71 04/19/2023 Assessment & Plan (12/16/2023 10:13 AM HEAD OF QUALITY): - chronic, controlled - diagnosis around 1996 - had been on propafenone since 1996, started after admission for arrhythmia after a colonoscopy prep - s/p cardioversion around August 2023 which has helped her - currently on Eliquis 2.5 mg BID for anticoagulation per Cardiology - currently on Metoprolol XL 50 mg daily, Diltiazem 240 mg daily - continue current therapy - follows with cardiology - Dr. Gill - follows and managed by Electrophysiology - Dr. Mcintosh Echo done at outside facility in the past Lab Results Component Value Date TSH 2.71 04/19/2023 Assessment & Plan (08/11/2023 11:03 AM CDT): - chronic, worse - been more symptomatic with fatigue. Scheduled for ablation on August 26, 2023 - diagnosis around 1996 - had been on propafenone since 1996, started after admission for arrhythmia after a colonoscopy prep - currently on Eliquis 2.5 mg BID for anticoagulation (recently decreased from 5 mg BID) - currently on Metoprolol XL 50 mg daily, Diltiazem 240 mg daily - continue current therapy - follows with cardiology - Dr. Gill - follows and managed by Electrophysiology - Dr. Arnaldo Boykin done at outside facility in the past Lab Results Component Value Date TSH 2.71 04/19/2023 Assessment & Plan (05/26/2023 11:09 AM CDT): - chronic, stable - diagnosis around 1996 - had been on propafenone since 1996, started after admission for arrhythmia after a colonoscopy prep - currently on Eliquis 5 mg BID for anticoagulation - currently on Metoprolol XL 25mg daily, Diltiazem 240 mg daily - continue current therapy - follows with cardiology - Dr. Gill - follows and managed by Electrophysiology - Dr. rAnaldo Boykin done at outside facility in the past Lab Results Component Value Date TSH 2.71 04/19/2023 Assessment & Plan (04/26/2023 3:40 PM CDT): - chronic, stable - diagnosis around 1996 - had been on propafenone since 1996, started after admission for arrhythmia after a colonoscopy prep - currently on Eliquis 5 mg BID for anticoagulation - currently on Metoprolol XL 25mg daily, Diltiazem 240 mg daily - continue current therapy - follows with cardiology - Dr. Gill - follows and managed by Electrophysiology - Dr. Mcintosh Echo done at outside facility in the past Lab Results Component Value Date TSH 2.71 04/19/2023 Assessment & Plan (04/13/2023 10:18 AM CDT): - chronic, stable - diagnosis around 1996 - had been on propafenone since 1996, started after admission for arrhythmia after a colonoscopy prep - currently on Eliquis 5 mg BID for anticoagulation - currently on Metoprolol XL 25mg daily, Diltiazem 240 mg daily - continue current therapy - follows with cardiology - Dr. Gill - follows and managed by Electrophysiology - Dr. Mcintosh Echo done at outside facility in the past Lab Results Component Value Date TSH 2.20 08/06/2022 Assessment & Plan (10/12/2022 11:00 AM HEAD OF QUALITY): - chronic, stable - diagnosis around 1996 - had been on propafenone since 1996, started after admission for arrhythmia after a colonoscopy prep - currently on Eliquis 5 mg BID for anticoagulation - currently on Metoprolol XL 25mg daily, Diltiazem 240 mg daily - not in RVR - continue current therapy - follows and managed by Electrophysiology? Echo done at outside facility Lab Results Component Value Date TSH 2.20 08/06/2022 Assessment & Plan (08/11/2022 10:21 AM CDT): - chronic, stable - diagnosis around 1996 - had been on propafenone since 1996, started after admission for arrhythmia after a colonoscopy prep - currently on Eliquis 5 mg BID for anticoagulation - currently on Metoprolol XL 25mg daily, Diltiazem 240 mg daily - not in RVR - continue current therapy - follows and managed by Cardiology??? Echo 03/2016 1. CONCENTRIC LVH, MILD. 2. HYPERDYNAMIC GLOBAL LV FUNCTION WITH ESTIMATED EJECTION FRACTION OF 70-75%. 3. NO LV MURAL THROMBUS OR VALVULAR VEGETATION. 4. MITRAL REGURGITATION, TRIVIAL. 5. TRICUSPID REGURGITATION, TRIVIAL. 6. PROBABLE DIASTOLIC DYSFUNCTION. Assessment & Plan (06/09/2022 10:51 AM CDT): - chronic, stable - diagnosis around 1996 - had been on propafenone since 1996, started after admission for arrhythmia after a colonoscopy prep - currently on Eliquis 5 mg BID for anticoagulation - currently on Metoprolol XL 25mg daily, Diltiazem 240 mg daily - not in RVR - continue current therapy Assessment & Plan (03/06/2022 9:48 AM CDT): - chronic, stable - diagnosis around 1996 - had been on propafenone since 1996, started after admission for arrhythmia after a colonoscopy prep - currently on Eliquis 5 mg BID for anticoagulation - currently on Metoprolol XL 25mg daily, Diltiazem 240 mg daily - not in RVR - continue current therapy Assessment & Plan (12/08/2021 11:45 AM HEAD OF QUALITY): - chronic, stable - diagnosis around 1996 - had been on propafenone since 1996, started after admission for arrhythmia after a colonoscopy prep - currently on Eliquis 5 mg BID for anticoagulation - currently on Metoprolol XL 25mg daily, Diltiazem 240 mg daily - not in RVR, continue current therapy Assessment & Plan (09/04/2021 12:38 PM CDT): - diagnosis around 1996 - had been on propafenone since 1996, started after admission for arrhythmia after a colonoscopy prep - told to switch to Eliquis for anticoagulation - currently on Diltiazem 240 mg daily Assessment & Plan (11/20/2019 10:22 AM HEAD OF QUALITY): Without recurrence. Assessment & Plan (08/09/2019 2:52 PM CDT): Stable on propafenone without reoccurrence. Assessment & Plan (04/14/2018 1:08 PM CDT): Regular rate and rhythm on exam. Managed by Dr. Arce. Continue present regimen Assessment & Plan (02/03/2018 1:00 PM CDT): Managed by Dr. Ross Arce. Well controlled on current med regimen. Renal artery stenosis (CMS/HCC) 01/06/2011 Assessment & Plan (05/26/2023 11:07 AM CDT): - chronic condition - follows with nephrology - hx of left renal stent placement in 10/2005 for Fibromuscular dysplasia left renal artery - had hx of resistant hypertension, still has labile hypertension - get it evaluated regularly per nephrology 2010 renal artery duplex: OK per patient 05/28 renal artery duplex: possible borderline stenosis mid-distal right renal artery, no left IRMA Assessment & Plan (09/04/2021 12:45 PM CDT): - follows with nephrology - hx of left renal stent placement in 10/2005 for Fibromuscular dysplasia left renal artery - had hx of resistant hypertension, still has labile hypertension 2010 renal artery duplex: OK per patient 05/28 renal artery duplex: possible borderline stenosis mid-distal right renal artery, no left IRMA Assessment & Plan (11/20/2019 10:18 AM HEAD OF QUALITY): Due to fibromuscular dysplasia. Assessment & Plan (05/23/2018 8:34 PM CDT): Monitored by Dr. Tsering Plaza. Assessment & Plan (04/14/2018 1:05 PM CDT): Renal condition is clinically stable. Managed by Dr. Plaza Assessment & Plan (02/03/2018 12:59 PM CDT): Managed by Dr. Tsering Plaza, clinically stable. Mild secondary hyperparathyroidism noted. 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 Symptoms already seem to be improving and she has been using ibuprofen twice daily for the last few days. She is also already on long-term use of prednisone 5 mg daily. Continue current management in the meantime and I will obtain uric acid level and x-ray of the right foot for further evaluation. Discussed if there is elevated uric acid will likely send her medication to lower the uric acid. Up date below -- Uric acid found to be elevated as shown below Consistent with Acute Gout Start Allopurinol 50 mg daily given known CKD stage 3B, script sent in Lab Results Component Value Date URICACID 7.4 (H) 04/25/2024 CHF (congestive heart failur e), NYHA class I, acute on chronic, combined 05/29/2023 08/27/2024 Rectal prolapse 05/26/2023 12/16/2023 Assessment & Plan (08/11/2023 10:58 AM CDT): S/p rectal prolapse repair 07/07 Assessment & Plan (07/16/2023 12:44 AM CDT): - diagnosed during recent hospitalization - she was advised that her uterine prolapse needs to be corrected first before intervention on the rectal prolapse --> will likely need surgical intervention with general surgery - avoiding constipation and using laxatives Cardiorenal syndrome 05/19/2023 024 Acute heart failure with pre served ejection fraction 05/11/2023 08/14/2024 Assessment & Plan (05/26/2023 11:11 AM CDT): - recent diagnosis - recently had an echo with findings as shown below - recent hospitalization 06/06 for acute diastolic heart failure exacerbation - has lower extremity edema - recently started taking lasix 20 mg daily which she had in past for PRN use - aware to 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 Severe concentric left ventricular hypertrophy. Ejection fraction is visually estimated at 65 to 70 %. There is mild enlargement of left atrium. Severe mitral annular calcification. Mild mitral valve regurgitation. Aortic cusps appear mildly sclerotic. Normal structure of the tricuspid valve. Moderate pulmonary hypertension based on right ventricular systolic pressure. Estimated peak RVSP is 55 to 59 mmHg. Mild to moderate tricuspid regurgitation. Mild malnutrition 05/10/2023 12/16/2023 Hyponatremia 05/09/2023 05/26/2023 Unintentional weight loss 07/27/2022 Assessment & Plan (07/27/2022 2:03 PM CDT): Patient has had close to 15 lb weight loss over the last year. CT chest abdomen pelvis showed possible thickening in the stomach that could be due to under distention. Patient has chronic but stable GI problems including occasional epigastric pain/bloating and nausea. No prior EGD or complete colonoscopy. We will plan for MRI for further evaluation of liver lesion that was seen on CT and ultrasound. I discussed with the patient regarding performing EGD and colonoscopy to further workup her weight loss. Patient would like to defer further endoscopy workup until after MRI. Influenza vaccination declined 08/08/2019 09/05/2021 Assessment & Plan (08/08/2019 11:34 AM CDT): Will obtain at local [facility] Hot flashes 07/25/2018 09/05/2021 Assessment & Plan (07/25/2018 12:01 PM CDT): Worse at night. Will try magnesium if not improvement will let us know. Consider referral to research software engineer if no improvement. Encounter for long-term (cur rent) use of high-risk medication 07/25/2018 04/13/2023 Assessment & Plan (11/20/2019 10:10 AM HEAD OF QUALITY): Patient on immunosuppressive medications requiring periodic lab monitoring for drug safety. Update lab as per orders written. Assessment & Plan (08/09/2019 11:20 AM CDT): Patient on immunosuppressive medications requiring periodic lab monitoring for drug safety. Assessment & Plan (04/11/2019 10:41 AM CDT): Patient on immunosuppressive medications requiring periodic lab monitoring for drug safety. Update lab as per orders written. Assessment & Plan (01/11/2019 12:45 PM HEAD OF QUALITY): Patient on immunosuppressive medications requiring periodic lab monitoring for drug safety. Update lab as per orders written. Assessment & Plan (10/12/2018 1:57 PM HEAD OF QUALITY): Patient on immunosuppressive medications requiring periodic lab monitoring for drug safety. Update lab as per orders written. Assessment & Plan (08/24/2018 3:05 PM CDT): Patient on immunosuppressive medications requiring periodic lab monitoring for drug safety. Achilles tendinitis of right lower extremity 8 09/04/2021 Assessment & Plan (04/14/2018 12:54 PM CDT): She complains of painful lump to right achilles heal. There is a tender lump to right inner achilles tendon. Will order MRI for further evaluation to r/o tear/rupture. Avoid strenuous activity for now. BMI less than 19,adult 02/03/201812/16 Assessment & Plan (04/13/2023 10:14 AM CDT): - difficulty with weight gain - referred and established with GI, has colonoscopy coming up Assessment & Plan (10/12/2022 11:06 AM HEAD OF QUALITY): - difficulty with weight gain - referred and established with GI, has colonoscopy coming up Assessment & Plan (11/20/2019 10:10 AM HEAD OF QUALITY): BMI satisfactory. A healthy diet and routine exercise regimen are escobedo to weight management. Assessment & Plan (04/11/2019 10:41 AM CDT): BMI satisfactory. A healthy diet and routine exercise regimen are escobedo to weight management. Assessment & Plan (01/11/2019 12:45 PM HEAD OF QUALITY): BMI satisfactory. A healthy diet and routine exercise regimen are escobedo to weight management. Assessment & Plan (10/12/2018 2:02 PM HEAD OF QUALITY): BMI satisfactory. A healthy diet and routine exercise regimen are escobedo to weight management. Assessment & Plan (06/23/2018 1:16 PM CDT): BMI normal. Continue healthy diet and exercise regimen. Assessment & Plan (05/23/2018 10:53 AM CDT): BMI low. Recommend continued focus on healthy diet and adequate protein intake. Assessment & Plan (02/03/2018 1:01 PM CDT): Reinforced importance adequate nutrition and protein intake. Cough 10/04/2015 05/23/2018 Overview (02/19/2017): Cough Carpal tunnel syndrome 09/27/201509/04 Assessment & Plan (09/04/2021 12:30 PM CDT): - right carpal tunnel syndrome - never had surgery for this - diagnosed with raynauds, so unclear how much it is contributing - may benefit with EMG down the road Gastroesophageal reflux dise ase without esophagitis 09/27/2015 09/04/2021 Assessment & Plan (10/12/2018 1:56 PM HEAD OF QUALITY): May try over the counter Prilosec or Nexium if Zantac (ranitidine) ineffective. History of anemia 09/27/2015 08/11/2023 Mixed hyperlipidemia 09/27/2015 022 Assessment & Plan (06/09/2022 10:44 AM CDT): - chronic codnition - currently on Pravastatin 40 mg daily - goal LDL <70 given known CAD - most recent LDL as shown below - continue with current therapy Lab Results Component Value Date LDLCALC 55 02/18/2022 Assessment & Plan (12/08/2021 11:53 AM HEAD OF QUALITY): - chronic codnition - currently on Pravastatin 40 mg daily - goal LDL <70 given known CAD - most recent LDL as shown below Lab Results Component Value Date LDLCALC 53 03/13/2021 - continue with current therapy Assessment & Plan (09/04/2021 12:31 PM CDT): - chronic codnition - currently on Pravastatin 40 mg daily - goal LDL <70 given known CAD - most recent LDL as shown below Lab Results Component Value Date LDLCALC 53 03/13/2021 - continue with current therapy IBS (irritable bowel syndrome) 09/27/2015 09/04/2021 Rash 07/15/2015 05/23/2018 Raynaud's phenomenon without gangrene 09/19/2014 05/23/2018 Overview (02/03/2018): Overview: in setting of RA & Sjogren's... Dr. Yoon follows Assessment & Plan (02/03/2018 1:00 PM CDT): Reviewed again with patient cold avoidance precautions (especially core temperature warmth). Continue amlodipine and low dose aspirin. Raynaud's syndrome 09/19/2014 3 Thumb pain 03/21/2014 05/23/2018 Renal insufficiency 08/07/2011 06/09/20 22 Overview (06/09/2022): 11/03 BUN 33 creatinine 1.37 GFR 38 04/03 BUN 33 creatinine 1.44 GFR 35 04/02 BUN 25 creatinine 1.23 GFR 43 03/03 BUN 25 creatinine 1.1 GFR 50 10/02 BUN 29 creatinine 1.6 GFR 32 09/01 BUN 24 creatinine 1.29 GFR 41 05/02 BUN 21 creatinine 1.19 10/31 BUN 23 creatinine 1.32 GFR 40 05/01 BUN 30 creatinine 1.48 04/30 BUN 28 creatinine 1.15 02/27 BUN 22 creatinine 1.24 06/28 BUN 20 creatinine 1.04 11/27 BUN 23 creatinine 1.24 09/25 BUN 21 creatinine 1.27 07/26 BUN 31 creatinine 1.39 02/27 BUN 22 creatinine 1.24 06/28 BUN 20 creatinine 1.04 11/27 BUN 23 creatinine 1.24 09/25 BUN 21 creatinine 1.27 07/26 BUN 31 creatinine 1.39 Atrial fibrillation 01/06/2011 04/30/20 25 Overview (06/09/2022): Holter: sinus rhythm range 50-110, occasional-frequent PACs, short runs atrial tachycardia, longest 6 12/26 Holter: sinus rhythm at 70, range 54-98), 1 PVC, 104 PACs, 5 atrial couplets, maximum pause 1.5, h/a correlated with SR in 60s Essential hypertension 01/06/201106/09 Encounters Date Type Department Care Team Description 06/15/2025 Orders Only [facility] Health Information Management [address] [place] [address] Zay Lebron MD 06/12/2025 1:00 PM CDT [address] [address] 06/04/2025 7:22 PM CDT - 06/04/2025 11:59 PM CDT Hospital Encounter [facility] [address] [place] [address] Discharge Disposition: Discharge to home or self care 05/21/2025 10:20 AM CDT Office Visit [facility] Medicine Obstetrics and Gynecology [address] [facility] 7[address] [place] [address] Kami Ferrara NP Incomplete uterovaginal prolapse (Primary Dx); Vaginal atrophy; Pessary maintenance 05/01/2025 Results Follow-Up [facility] Primary Care at [address] [id number] Zay Lebron MD Uric acid, Vitamin D 25 hydroxy, Lipid panel, Additional followed-up results: 5 04/30/2025 10:00 AM CDT - 04/30/2025 11:59 PM CDT Hospital Encounter [facility] [address] [place] [address] 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; Vitamin D deficiency; Pure hypercholesterolemia; Chronic anemia Discharge Disposition: Discharge to home or self care 04/30/2025 10:00 AM CDT Lab [facility] Outpatient Lab at [address] [phone] 04/30/2025 9:30 AM CDT Office Visit [facility] Primary Care at [address] [phone] Zay Lebron MD Chronic anemia (Primary Dx); Paroxysmal atrial fibrillation (HCC); Pure hypercholesterolemia; 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; Vitamin D deficiency; 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; Low bone mass; Stage 3b chronic kidney disease (HCC); SLE (systemic lupus erythematosus related syndrome) (HCC) from Last 3 Months Immunizations Immunization Administration Dates Next Due Hep B, Adolescent or Pediatric 12/17/1998,1997,06/12/1998 Hep B, Unspecified 12/17/1998,07/16/1998, 998 Influenza Virus Vaccine Trivalent Mdv 09/10/2024 Influenza, Quad, Adjuvantate d, Intramuscular 07/31/2020 Influenza, Quadrivalent, Hig h Dose, Preservative Free, Intrr 09/07/2023,09/13/2022,08/18/2021 Influenza, Trivalent, Adjuva nted, Intramuscular 08/15/2018,08/14/2018 Influenza, Trivalent, High D ose, Split, Preservative Free, Intramuscular 08/14/2019,08/16/2017,08/30/2016,09/16,09/05/2014 Influenza, Trivalent, IM (MDV) 6,09/12/2015,09/06/2013,08/31 Influenza, Unspecified 08/18/2021,2014,09/06/2013,08/31 Pfizer SARS-CoV-2 Monovalent Vaccination (12+ Yrs) PURPLE 09/29/2021,01/31/2021,01/10/2021 Pfizer Sars-Cov-2 Bivalent V accination (12+ YRS) 08/05/2022 Pneumococcal Conjugate PCV 13 09/16/2015, 015 Pneumococcal Polysaccharide PPV23 09/04/2021 Tetanus 08/15/2006 Surgical History Surgery Date Site/Laterality Comments SINUS SURGERY 11/15/1991 - 11/14/1992 BREAST SURGERY Left lumpectomy BREAST SURGERY 11/15/1994 - 11/14/1995 Right BREAST BIOPSY 11/15/1989 - 11/14/1990 Left benign surgical bx BREAST CYST ASPIRATION 1989? Right benign 20+ years ago RECTOCELE REPAIR 05/15/2023 - 06/14/2023 Medical History Medical History Date Comments Hx Other Medical Renal Stenosis; Comments: KAB 10/04/2015 - Hypertension Hypertension Arthritis Chronic kidney disease Hyperlipidemia Osteoarthritis Heart disease Lupus 2016 Family History Medical History Relation Name Comments Heart disease Brother Brother Hypertension Brother Brother Diabetes Mother Mother Heart disease Mother Mother Hypertension Mother Mother Arthritis Other Hypertension Sister Sister Thyroid cancer Sister Sister Relation Name Status Comments Brother Brother Father (Age 54) Mother Mother (Age 82) Other Sister Sister Social History Tobacco Use Types Packs/Day Years Used Date Smoking Tobacco: Former Cigarettes 0.8 54 0 [birth year]/1956 - 11/15/2010 Passive Smoke Exposure: Past Smokeless Tobacco: Never Tobacco Cessation:Counseling Given: Not Answered Alcohol Use Standard Drinks/Week Comments No 0 (1 standard drink = 0.6 oz pure alcohol) 2 cups of coffee and 2 cups of tea OASIS D0700: Social Isolation Answer Da te Recorded Frequency of experiencing loneliness or isolatio n Never 04/10/2025 OASIS A1250: Transportation Answer Date Recorded Lack of Transportation (Medical) No 04/10/2025 Lack of Transportation (Non-Medical) No 04/10/2025 Patient Unable or Declines to Respond No 04/10/2025 OASIS B1300: Health Literacy Answer Patrick e Recorded Frequency of needing help to read materials from doctor or pharmacy Never 04/10/2025 [facility] Utilities Answer Date Recorded In the past 12 months has th e [employer], gas, oil, or water company threatened to shut off services in your home? No 01/23/2025 Social Connection and Isolation Panel Answer Date Recorded In a typical week, how many times do you talk on the phone with family, friends, or neighbors? More than three times a week 01/23/2025 How often do you get togethe r with friends or relatives? More than three times a week 01/23/2025 How often do you attend chur ch or zoroastrian services? Never 01/23/2025 Do you belong to any clubs o r organizations such as orthodoxy groups, unions, fraternal or athletic groups, or school groups? No 01/23/2025 How often do you attend meet ings of the clubs or organizations you belong to? Never 01/23/2025 Are you , , di vorced, , never , or living with a partner? 01/23/2025 AUDIT-C Answer Date Recorded Q1: How often do you have a drink containing alcohol? Never 05/16/2024 Q2: How many drinks containi ng alcohol do you have on a typical day when you are drinking? Patient does not drink Q3: How often do you have si x or more drinks on one occasion? Never 05/16/2024 Overall Financial Resource Strain (CARDIA) Answe r Date Recorded How hard is it for you to pa y for the very basics like food, housing, medical care, and heating? Not hard at all 01/23/2025 PHQ-2 Answer Date Recorded PHQ-2 Total Score (If total score is 3 or more points, staff should administer the PHQ-9) 0 04/30/2025 Hunger Vital Sign Answer Date Recorded Within the past 12 months, y ou worried that your food would run out before you got the money to buy more. Never true 01/24/20 25 Within the past 12 months, t he food you bought just didn't last and you didn't have money to get more. Never true 01/23/2025 PRAPARE - Transportation Answer Date Re corded In the past 12 months, has l ack of transportation kept you from medical appointments or from getting medications? No 01/13 In the past 12 months, has l ack of transportation kept you from meetings, work, or from getting things needed for daily living? No 01/23/2025 Housing Stability Vital Sign Answer Patrick e Recorded In the last 12 months, was t here a time when you were not able to pay the mortgage or rent on time? No 06/02/2023 In the last 12 months, how many places have you lived? 1 06/02/2023 In the last 12 months, was t here a time when you did not have a steady place to sleep or slept in a m[facility]p (including now)? No 06/02/2023 Housing Stability Vital Sign Answer Patrick e Recorded In the last 12 months, was t here a time when you were not able to pay the mortgage or rent on time? No 01/23/2025 In the past 12 months, how m any times have you moved where you were living? 0 01/23/2025 At any time in the past 12 m [place] hospital, were you homeless or living in a [facility] (including now)? No 01/23/2025 Personal Safety Answer Date Recorded Have you ever been in or are you currently in a harmful physical or emotional relationship or is someone making you feel afraid or unsafe? Denies 01/22/2025 Comments No Sex and Gender Information Value Date Recorded Sex Assigned at Not on file Legal Sex Female 3:18 AM HEAD OF QUALITY Gender Identity Not on file Sexual Orientation Not on file Obstetrics History Para Term AB IAB SAB Ectopic Multiple Livin g Live Births 2 2 2 Date Outcome GA Total Labor Labor/2nd/3rd Weight Sex Type Anes PTL Trixie A1 A5 Name Clin Term Term Last Filed Vital Signs Vital Sign Reading Time Taken Comments Blood Pressure 136/80 04/30/2025 9:29 AM CDT Pulse 63 04/30/2025 9:29 AM CDT Temperature 36.8 C (98.2 F) 04/30/2025 9:29 AM CDT Respiratory Rate 18 04/10/2025 11:52 AM CDT Oxygen Saturation 97% 04/30/2025 9:29 AM CDT Inhaled Oxygen Concentration - - Weight 43.9 kg (96 lb 12.8 oz) 04/30/2025 9:29 A M CDT Height 152.4 cm (5') 05/21/2025 10:25 AM CDT Body Mass Index 18.9 04/30/2025 9:29 AM CDT Plan of Treatment Health Maintenance Due Date Last Done Comments DTaP/Tdap/Td Vaccine (1 - Tdap) 1956 Zoster Vaccine (1 of 2) 1964 Covid-19 Vaccine (6 2023-2 5 season) 2024 10/31/2023, 08/05/2022, 09/29/2021, Additional history exists Osteoporosis Screening-Bone Density Scan 11/02/2024 11/02/2022, 09/16/2021, 06/10/2018, Additional history exists Influenza Vaccine (#1) 2025 , 09/07/2023, 09/13/2022, Additional history exists Well Visit 65+ 08/14/2025 08/14/2024, 07/17, 06/09/2022 Depression Screening 04/30/2026 04/30/2025, 02/01/2025, 12/28/2024, Additional history exists Fall Risk Assessment 04/30/2026 04/30/2025, 02/01/2025, 01/27/2025, Additional history exists Pneumococcal vaccine 65+ Completed 021, 09/16/2015, 09/12/2015 Lung Cancer Screening Discontinued Goals Goal Patient Goal Type Associated Problems Recent Progress Patient-Stated? Author THADDEUS General Goal - Patient schedules and keeps appointments with all recommended providers ACO Care Management On track(2024 4:05 PM CDT) Sadaf Rodgers, RN Note: Problem: Potential for medical complications and readmission if follow-up appointments are not scheduled Interventions: - Ensure all follow-up appointments are scheduled, all prescribed medications have been received. - Address any barriers for keeping scheduled appointment. - Coordinate with patient/caregiver(s) to ensure patient is able to keep scheduled appointment. - Emphasize importance of keeping scheduled appointments. - Identify and discuss questions for next provider visit. - Follow up with patient after scheduled appointment(s) to review any new orders or changes made to medication regimen. THADDEUS General Goal - Patient / caregiver verbalizes lifestyle changes necessary to meet self-care needs and executes self-care activities to utmost capability ACO Care Management On track(2024 4:05 PM CDT) Sadaf Rodgers, MARGARETH Note: Problem: At Risk for Self Care Deficit Interventions: - Assess patient's level of dependence on others. Guide the patent in accepting the needed amount of dependence. - Contact current caregiver and assess their involvement with patient and level of assistance provided. - Assess appropriateness for Home Health. Start referral process if skilled need is present. - Encourage independent ADL's as appropriate. Ensure patient has the appropriate tools at home to be as independent as possible. - Provide fall prevention education to patient and caregiver. - Evaluate need for assistive devices. - Refer to SW if appropriate and patient is agreeable. THADDEUS General Goal - Patient is knowledgeable about condition when worsening and how to respond ACO Care Management On track(2024 4:05 PM CDT) Josue Muhammad, RN Note: Problem: Knowledge deficit related to signs and symptoms of worsening condition Interventions: - Assess patient's level of understanding related to their condition(s), specific medications and self-management of their chronic conditions. - Send educational materials to patient related to their chronic condition, including signs and symptoms, self-management actions, and serious symptoms that require urgent medical intervention. - Assist patient/provider in developing an action plan for symptom management. - Review with patient weekly: s/s worsening condition, self-management actions to take, when to call CM or provider. HF Goal - Patient's CP status will be stable with increased knowledge of self-care management ACO Care Management On track(2024 4:04 PM CDT) Josue Muhammad, RN Note: Problem: Heart Failure Interventions: - Assess for HF exacerbation: dyspnea at rest, reports of increased dyspnea with exertion, sudden weight gain of 3+lbs in 1 day or 5+lbs in 1 week, increased edema in legs/ankles, frequent dry hacking cough, loss of appetite, increased fatigue. - Provide education surrounding fluid restrictions, daily weights, energy conservation techniques, sodium restricted diet, edema control. - Send heart failure educational materials. Edema Goal - Patient will be knowledgeable about HF and Edema and how to respond ACO Care Management On track(2024 4:04 PM CDT) Josue Muhammad, RN Note: Problem: Knowledge deficit r/t edema Interventions: - Provide Edema education: Examine legs each day for swelling or an increase in existing swelling; need to be able to describe how far up the leg the swelling reaches (ankle, mcduffie, knee) or measure ankle circumference. Examine other parts of body for swelling: abdomen, hands, etc. - Review and educate regarding any ordered sodium and fluid restrictions.. - Educate patient that notifying physician or CM of worsening condition can result in medication changes that can prevent a full-blown exacerbation and hospitalization. Procedures Procedure Name Priority Date/Time Associated Diagnosis Comments SCAN - RADIOLOGY/IMAGING 06/15/2025 EGFR Routine 06/12/2025 1:12 PM CDT DIFFERENTIAL AUTO Routine 06/12/2025 1:12 PM CDT URINALYSIS, MICROSCOPIC ONLY Routine 06/12/2025 1:12 PM CDT CREATININE, URINE, RANDOM Routine 06/12/2025 1:12 PM CDT PROTEIN, URINE, RANDOM Routine 06/12/2025 1:12 PM CDT CBC WITH AUTO DIFFERENTIAL Routine 06/12/2025 1:12 PM CDT COMPREHENSIVE METABOLIC PANEL Routine 06/12/2025 1:12 PM CDT URIC ACID Routine 06/12/2025 1:12 PM CDT PHOSPHORUS, SERUM Routine 06/12/2025 1:12 PM CDT MAGNESIUM Routine 06/12/2025 1:12 PM CDT PTH Routine 06/12/2025 1:12 PM CDT VITAMIN D 25 HYDROXY Routine 06/12/2025 1:12 PM CDT URINALYSIS AND REFLEX TO MICROSCOPIC AND CULTURE Routine 06/12/2025 1:12 PM CDT FERRITIN Routine 06/04/2025 1:48 PM CDT IRON PROFILE W/ IBC Routine 06/04/2025 1:48 PM CDT EGFR Routine 06/04/2025 1:48 PM CDT DIFFERENTIAL AUTO Routine 06/04/2025 1:48 PM CDT CBC WITH AUTO DIFFERENTIAL Routine 06/04/2025 1:48 PM CDT CREATININE Routine 06/04/2025 1:48 PM CDT HEPATIC FUNCTION PANEL Routine 06/04/2025 1:48 PM CDT VITAMIN D 25 HYDROXY Routine 04/30/2025 3:15 PM CDT Vitamin D deficiency DIFFERENTIAL AUTO Routine 04/30/2025 10:00 AM CDT Chronic anemia IRON PROFILE W/ IBC Routine 04/30/2025 10:00 AM CDT Chronic anemia FERRITIN Routine 04/30/2025 10:00 AM CDT Chronic anemia CBC WITH AUTO DIFFERENTIAL Routine 04/30/2025 10:00 AM CDT Chronic anemia VITAMIN B12 Routine 04/30/2025 10:00 AM CDT Chronic anemia LIPID PANEL Routine 04/30/2025 10:00 AM CDT Pure hypercholesterolemia URIC ACID Routine 04/30/2025 10:00 AM CDT 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 DEXA AXIAL SKELETON BONE DENSITY 1 OR MORE SITES Schedule Routine, Read Routine (OP Routine) 11/02/2022 10:16 AM HEAD OF QUALITY Lupus (CMS/HCC) (HCC) from Last 3 Months or Most Recently Relevant to Health Maintenance Results * SCAN - RADIOLOGY/IMAGING (06/15/2025) Anatomical Region Laterality Modality Other Zay Lebron MD Final R esult * Phosphorus, serum (06/12/2025 1:12 PM CDT) Phosphorus, sr 4.4 2.3 - 4.5 mg/dL PB ELLISON (JANA) Blood 06/12/2025 1:12 PM CDT 06/12/2025 1:26 PM CDT Tsering Plaza MD LAB BLOOD ORDERABLES Fi nal Result Performing Organization Address City/[facility] [address]/ZIP Co de Phone Number PB ELLISON (JANA) 1 [facility] [place] [address] * (ABNORMAL) eGFR (06/12/2025 1:12 PM CDT) Pathologist [facility] eGFR 32(L) >=60 mL/min/1. 73 m2 Comment: Interpretive Data Reference Interval Normal >/= 90 mL/min/1.73m2 Mildly decreased* 60 - 89 mL/min/1.73m2 Mildly to moderately decreased 45 - 59 mL/min/1.73m2 Moderately to severely decreased 30 - 44 mL/min/1.73m2 Severely decreased 15 - 29 mL/min/1.73m2 Kidney Failure < 15 mL/min/1.73m2 *Relative to young adult level Estimated glomerular filtration rate is determined by the 2020 CKD-EPI equation recommended by the National Kidney Foundation (A Unifying Approach to GFR Estimation: Recommendations of the NKF-ASK Task Force on Reassessing the Inclusion of Race in Diagnosing Kidney Disease, JASN 2020). The CKD-EPI equation should not be used for patients with unstable renal function and has not been validated in children and those over 70. Current interpretive data was last reviewed 2021. Blood 06/12/2025 1:12 PM CDT 06/12/2025 1:26 PM CDT Tsering Plaza MD LAB BLOOD ORDERABLES Fi nal Result [facility] (JANA) 1 [facility] Department [place] [address] * (ABNORMAL) Differential, auto (06/12/2025 1:12 PM CDT) Neutrophil abs 8.22(H) 1.50 - 6.50 K/cumm Imm gran abs 0.02 0.00 - 0.10 K/cumm [facility] ([place]) Lymphocyte abs 0.30(L) 0.80 - 3.30 K/cumm [facility] ([place]) Monocyte abs 0.40 0.20 - 0.80 K/cumm [facility] ([place]) Eosinophil abs 0.06 0.00 - 0.50 K/cumm [facility] ([place]) Basophil abs 0.03 0.00 - 0.10 K/cumm [facility] ([place]) Neutrophil pct 91.1 % [facility] ([place]) Comment: Interpretive Data Percent cell count reference ranges are not reported, since discordance with absolute values may lead to misinterpretation of CBC data. Current Interpretive Data was last revised on 2018. Imm gran pct 0.2 % [facility] ([place]) Comment: Interpretive Data Percent cell count reference ranges are not reported, since discordance with absolute values may lead to misinterpretation of CBC data. Current Interpretive Data was last revised on 2018. Lymphocyte pct 3.3 % [facility] ([place]) Comment: Interpretive Data Percent cell count reference ranges are not reported, since discordance with absolute values may lead to misinterpretation of CBC data. Current Interpretive Data was last revised on 2018. Monocyte pct 4.4 % [facility] ([place]) Comment: Interpretive Data Percent cell count reference ranges are not reported, since discordance with absolute values may lead to misinterpretation of CBC data. Current Interpretive Data was last revised on 2018. Eosinophil pct 0.7 % [facility] ([place]) Comment: Interpretive Data Percent cell count reference ranges are not reported, since discordance with absolute values may lead to misinterpretation of CBC data. Current Interpretive Data was last revised on 2018. Basophil pct 0.3 % [facility] ([place]) Comment: Interpretive Data Percent cell count reference ranges are not reported, since discordance with absolute values may lead to misinterpretation of CBC data. Current Interpretive Data was last revised on 2018. Blood 06/12/2025 1:12 PM CDT 06/12/2025 1:43 PM CDT Tsering Plaza MD LAB BLOOD ORDERABLES Fi nal Result [facility] (JANA) 1 [facility] Department [place] [address] * (ABNORMAL) Urinalysis reflex to microscopic and culture Urine (06/12/2025 1:12 PM CDT) Color, ur Straw Yellow Clarity, ur Clear Clear [facility] ([place]) Specific gravity, ur 1.007 1.003 - 1.030 [facility] ([place]) pH, urine 5.5 [facility] ([place]) Comment: Interpretive Data U rine pH is affected by diet, medications, systemic acid-base disturbances, and renal tubular function. pH may affect urinary stone formation. For example, urine pH below 6.0 may help reduce the tendency for calcium phosphate stones and pH greater than 6.0 may reduce the tendency for uric acid stone formation. Source: [facility] [employer] Current Interpretive Data was last revised on 2017 Protein, ur ql Negative Negative [facility] ([place]) Glucose, ur ql Negative Negative [facility] ([place]) Ketones, ur Negative Negative [facility] ([place]) Bilirubin, ur Negative Negative [facility] ([place]) Blood, ur Negative Negative [facility] ([place]) Urobilinogen, ur <2.0 <2.0 mg/dL [facility] ([place]) Nitrite, ur Negative Negative [facility] ([place]) Leukocyte esterase, ur 3+(A) Negative [facility] ([place]) UA reflex comment Reflex to microscopic UA will be performed. [facility] ([place]) Urine 06/12/2025 1:12 PM CDT 06/12/2025 1:24 PM CDT us Tsering V. Pavlopoulos MD LAB MICROBIOLOGY - GENE RAL ORDERABLES Final Result PB ELLISON (JANA) 1 [facility] [place] [address] * (ABNORMAL) CBC with auto differential (06/12/2025 1:12 PM CDT) Pathologist [facility] WBC 9.03 3.80 - 9.90 K/cumm Hgb 11.1(L) 11.9 - 15.5 g/dL [facility] ([place]) Hct 34.7(L) 35.6 - 45.5 % [facility] ([place]) Plt 260 150 - 400 K/cumm [facility] ([place]) MPV 9.6 9.1 - 12.3 fL [facility] ([place]) RBC 3.60(L) 3.90 - 5.20 M/cumm [facility] ([place]) MCV 96.4 81.3 - 96.4 fL [facility] ([place]) MCH 30.8 27.1 - 33.3 pg [facility] ([place]) MCHC 32.0(L) 32.3 - 35.7 g/dL [facility] ([place]) RDW CV 15.2(H) 11.1 - 14.9 % [facility] ([place]) RDW SD 53.9(H) 35.7 - 48.1 fL [facility] ([place]) NRBC abs 0.00 0.00 - 0.01 K/cumm [facility] ([place]) Blood 06/12/2025 1:12 PM CDT 06/12/2025 1:43 PM CDT Tsering Plaza MD LAB BLOOD ORDERABLES Fi nal Result PB ELLISON (JANA) 1 [facility] [place] [address] * Protein, urine, random (06/12/2025 1:12 PM CDT) Pathologist [facility] Protein, ur, quant 6.7 mg/dL [facility] ([place]) Comment: Interpretive Data No reference range established. Current interpretive data was last revised 2019. Urine 06/12/2025 1:12 PM CDT 06/12/2025 1:24 PM CDT Narrative PB ELLISON (JANA) - 06/12/2025 2:03 PM CDT No normal range us Tsering Plaza MD LAB URINE ORDERABLES Fi nal Result Performing Organization Address City/[facility] [address]/ZIP Co de Phone Number PB ELLISON (JANA) 1 [facility] [place] [address] * Creatinine, urine, random (06/12/2025 1:12 PM CDT) Creatinine Ur 17.7 mg/dL PB ELLISON (JANA) Comment: Interpretive Data No reference range established. Current interpretive data was last revised 2019. Urine 06/12/2025 1:12 PM CDT 06/12/2025 1:24 PM CDT Narrative PB ELLISON (JANA) - 06/12/2025 2:03 PM CDT No normal range us Tsering Plaza MD LAB URINE ORDERABLES Fi nal Result Performing Organization Address [facility] [address]/[facility] Co de Phone Number ALEXKAVYA ELLISON (JANA) 1 [facility] [place] [address] * Vitamin D 25 hydroxy (06/12/2025 1:12 PM CDT) Vitamin D 25-OH 69 30 - 80 ng/mL PB ELLISON (JANA) Blood 06/12/2025 1:12 PM CDT 06/12/2025 1:26 PM CDT us Tsering Plaza MD LAB BLOOD ORDERABLES Fi nal Result Performing Organization Address City/[facility] [address]/ZIP Co de Phone Number PB ELLISON (JANA) [address] [place] [address] * (ABNORMAL) Urinalysis, microscopic only (06/12/2025 1:12 PM CDT) WBC, ur 0-5 0 - 5 /HPF RBC, ur 0-2 0 - 2 /HPF [facility] ([place]) Epithelial cells, squamous, ur 1-5 0 - 5 /HPF [facility] ([place]) Bacteria, ur 1+(A) [facility] ([place]) Mucous, ur Present(A) [facility] A ([place]) Culture Reflex Comment Reflex conditions for urine culture (WBC >10) not met. [facility] ([place]) Urine 06/12/2025 1:12 PM CDT 06/12/2025 1:24 PM CDT Tsering Plaza MD LAB URINE ORDERABLES Fi nal Result Performing Organization Address [facility] Co de Phone Number [facility] ([place]) 1 [place] [address] * Uric acid (06/12/2025 1:12 PM CDT) Pathologist [facility] Uric acid 5.4 2.5 - 7.0 mg/dL [facility] ([place]) Blood 06/12/2025 1:12 PM CDT 06/12/2025 1:26 PM CDT Tsering Plaza MD LAB BLOOD ORDERABLES Fi nal Result [facility] ([place]) 1 [place] [address] * (ABNORMAL) PTH (06/12/2025 1:12 PM CDT) Pathologist [facility] PTH 83(H) 18 - 58 pg/mL [facility] ([place]) Blood 06/12/2025 1:12 PM CDT 06/12/2025 1:26 PM CDT Tsering Plaza MD LAB BLOOD ORDERABLES Fi nal Result PB ELLISON (JANA) 1 [facility] Department [place] [address] * Magnesium (06/12/2025 1:12 PM CDT) Magnesium 2.3 1.4 - 2.5 mg/dL [facility] ([place]) Blood 06/12/2025 1:12 PM CDT 06/12/2025 1:26 PM CDT Tsering Plaza MD LAB BLOOD ORDERABLES Fi nal Result Performing Organization Address [facility] [address]/[facility] Co de Phone Number PB ELLISON (JANA) 1 [facility] [place] [address] * (ABNORMAL) Comprehensive metabolic panel (06/12/2025 1:12 PM CDT) Sodium 136 135 - 145 mmol/L [facility] ([place]) Potassium, pl 4.4 3.3 - 4.9 mmol/L [facility] ([place] Chloride 98 97 - 110 mmol/L [facility]) CO2 25 22 - 32 mmol/L [facility] ([place]) Anion gap 13 2 - 15 mmol/L [facility] ([place]) BUN 40(H) 6 - 25 mg/dL [facility] ([place]) Creatinine 1.60(H) 0.60 - 1.10 mg/dL [facility] ([place]) Glucose 99 70 - 199 mg/dL [facility] ([place]) Comment: Interpretive Data Fasting glucose >/= 126 mg/dl is diagnostic for diabetes. Fasting is defined as no caloric intake for at least 8 hours. Fasting glucose between 100 mg/dl to 125 mg/dl is diagnostic of prediabetes. In a patient with classic symptoms of hyperglycemia or hyperglycemic crisis, a random glucose >/= 200 mg/dl is diagnostic for diabetes. In the absence of unequivocal hyperglycemia, results should be confirmed by repeat testing. The classification and Diagnosis of Diabetes Diabetes Care 202; 46: S19-S40. Current interpretive data was last revised 2022. Calcium 10.1 8.5 - 10.3 mg/dL [facility] ([place]) Bilirubin, total 0.4 0.1 - 1.2 mg/dL [facility] ([place]) Protein, pl 7.7 6.5 - 8.5 g/dL [facility] ([place]) Albumin 4.4 3.5 - 5.0 g/dL [facility] ([place]) Alk phos 64 40 - 130 Units/L [facility] ([place]) ALT 15 7 - 45 Units/L [facility] ([place]) AST 25 10 - 45 Units/L [facility] ([place]) Blood 06/12/2025 1:12 PM CDT 06/12/2025 1:26 PM CDT us Tsering Plaza MD LAB BLOOD ORDERABLES Fi nal Result [facility] (JANA) 1 [facility] [place] [address] * (ABNORMAL) eGFR (06/04/2025 1:48 PM CDT) eGFR 31(L) >=60 mL/min/1. 73 m2 Comment: Interpretive Data Reference Interval Normal >/= 90 mL/min/1.73m2 Mildly decreased* 60 - 89 mL/min/1.73m2 Mildly to moderately decreased 45 - 59 mL/min/1.73m2 Moderately to severely decreased 30 - 44 mL/min/1.73m2 Severely decreased 15 - 29 mL/min/1.73m2 Kidney Failure < 15 mL/min/1.73m2 *Relative to young adult level Estimated glomerular filtration rate is determined by the 2020 CKD-EPI equation recommended by the National Kidney Foundation (A Unifying Approach to GFR Estimation: Recommendations of the NKF-ASK Task Force on Reassessing the Inclusion of Race in Diagnosing Kidney Disease, JASN 2020). The CKD-EPI equation should not be used for patients with unstable renal function and has not been validated in children and those over 70. Current interpretive data was last reviewed 2021. Testing performed by: [facility], [address] [facility], [place]., [address] Blood 06/04/2025 1:48 PM CDT 06/04/2025 9:59 PM CDT us Brandon Chakraborty MD LAB BLOOD ORDERABLES Fin al Result [facility] [address] [place] [address] * (ABNORMAL) Differential, auto (06/04/2025 1:48 PM CDT) Neutrophil abs 7.90(H) 1.50 - 6.50 K/cumm Imm gran abs 0.03 0.00 - 0.10 K/cumm [facility] Lymphocyte abs 0.32(L) 0.80 - 3.30 K/cumm [facility] Monocyte abs 0.45 0.20 - 0.80 K/cumm [facility] Eosinophil abs 0.08 0.00 - 0.50 K/cumm [facility] Basophil abs 0.05 0.00 - 0.10 K/cumm [facility] Neutrophil pct 89.5 % [facility] Comment: Interpretive Data Percent cell count reference ranges are not reported, since discordance with absolute values may lead to misinterpretation of CBC data. Current Interpretive Data was last revised on 2018. Imm gran pct 0.3 % [facility] Comment: Interpretive Data Percent cell count reference ranges are not reported, since discordance with absolute values may lead to misinterpretation of CBC data. Current Interpretive Data was last revised on 2018. Lymphocyte pct 3.6 % [facility] Comment: Interpretive Data Percent cell count reference ranges are not reported, since discordance with absolute values may lead to misinterpretation of CBC data. Current Interpretive Data was last revised on 2018. Monocyte pct 5.1 % [facility] Comment: Interpretive Data Percent cell count reference ranges are not reported, since discordance with absolute values may lead to misinterpretation of CBC data. Current Interpretive Data was last revised on 2018. Eosinophil pct 0.9 % [facility] Comment: Interpretive Data Percent cell count reference ranges are not reported, since discordance with absolute values may lead to misinterpretation of CBC data. Current Interpretive Data was last revised on 2018. Basophil pct 0.6 % [facility] Comment: Interpretive Data Percent cell count reference ranges are not reported, since discordance with absolute values may lead to misinterpretation of CBC data. Current Interpretive Data was last revised on 2018. Blood 06/04/2025 1:48 PM CDT 06/04/2025 9:40 PM CDT Brandon Chakraborty MD LAB BLOOD ORDERABLES Fin al Result Performing Organization Address [facility] Co de Phone Number [facility] [address] Department of [employer] [place], [place] [id number] * Iron profile w/ IBC (06/04/2025 1:48 PM CDT) [facility] Iron 132 35 - 145 mcg/dL TIBC 273 250 - 400 mcg/dL [facility] Transferrin saturation 48 20 - 50 % [facility] Blood 06/04/2025 1:48 PM CDT 06/04/2025 9:59 PM CDT Brandon Chakraborty MD LAB BLOOD ORDERABLES Fin al Result Performing Organization Address [facility] [address]/ZIP Co de Phone Number [facility] [address] Department of [employer] [place], [place] [id number] * (ABNORMAL) CBC with auto differential (06/04/2025 1:48 PM CDT) [facility] WBC 8.83 3.80 - 9.90 K/cumm Hgb 11.3(L) 11.9 - 15.5 g/dL [facility] Hct 36.8 35.6 - 45.5 % [facility] Plt 292 150 - 400 K/cumm [facility] MPV 10.1 9.1 - 12.3 fL [facility] RBC 3.71(L) 3.90 - 5.20 M/cumm [facility] MCV 99.2(H) 81.3 - 96.4 fL [facility] MCH 30.5 27.1 - 33.3 pg [facility] MCHC 30.7(L) 32.3 - 35.7 g/dL [facility] [facility] CV 15.6(H) 11.1 - 14.9 % [facility] R[facility] SD 56.2(H) 35.7 - 48.1 fL [facility] NRBC abs 0.00 0.00 - 0.01 K/cumm [facility] Blood 06/04/2025 1:48 PM CDT 06/04/2025 9:40 PM CDT us Brandon Chakraborty MD LAB BLOOD ORDERABLES Fin al Result Performing Organization Address [facility] [address]/ZIP Co de Phone Number [facility] [address] [place] [address] * (ABNORMAL) Ferritin (06/04/2025 1:48 PM CDT) Ferritin 245(H) 13 - 150 ng/mL Blood 06/04/2025 1:48 PM CDT 06/04/2025 9:59 PM CDT us Brandon Chakraborty MD LAB BLOOD ORDERABLES Fin al Result Performing Organization Address City/[facility] [address]/ZIP Co de Phone Number [facility] [address] [facility] [place] [address] * (ABNORMAL) Creatinine (06/04/2025 1:48 PM CDT) Creatinine 1.67(H) 0.60 - 1.10 mg/dL Blood 06/04/2025 1:48 PM CDT 06/04/2025 9:59 PM CDT Brandon Chakraborty MD LAB BLOOD ORDERABLES Fin al Result Performing Organization Address City/[facility] [address]/ZIP Co de Phone Number [facility] [address] [facility] [place] [address] * Hepatic function panel (06/04/2025 1:48 PM CDT) [facility] Bilirubin, total 0.4 0.1 - 1.2 mg/dL Bilirubin, direct <0.2 0.1 - 0.3 mg/dL [facility] Protein, pl 7.5 6.5 - 8.5 g/dL [facility] Albumin 4.3 3.5 - 5.0 g/dL [facility] Alk phos 61 40 - 130 Units/L [facility] ALT 18 7 - 45 Units/L [facility] AST 24 10 - 45 Units/L [facility] Blood 06/04/2025 1:48 PM CDT 06/04/2025 8:59 PM CDT Brandon Chakraborty MD LAB BLOOD ORDERABLES Fin al Result Performing Organization Address City/[facility] [address]/ZIP Co de Phone Number [facility] [address] [facility] [place] [address] * Vitamin D 25 hydroxy (04/30/2025 3:15 PM CDT) [facility] Vitamin D 25-OH 65 30 - 80 ng/mL Blood 04/30/2025 3:15 PM CDT 04/30/2025 3:15 PM CDT us Zay Lebron MD LAB BLOOD ORDERABLES Fi nal Result Performing Organization Address City/[facility] [address]/ZIP Co de Phone Number [facility] [address] [facility] [place] [address] * (ABNORMAL) Differential, auto (04/30/2025 10:00 AM CDT) [facility] Neutrophil abs 6.73(H) 1.50 - 6.50 K/cumm Imm gran abs 0.02 0.00 - 0.10 K/cumm [facility] Lymphocyte abs 0.30(L) 0.80 - 3.30 K/cumm [facility] Monocyte abs 0.48 0.20 - 0.80 K/cumm [facility] Eosinophil abs 0.17 0.00 - 0.50 K/cumm [facility] Basophil abs 0.05 0.00 - 0.10 K/cumm [facility] Neutrophil pct 86.8 % [facility] Comment: Interpretive Data Percent cell count reference ranges are not reported, since discordance with absolute values may lead to misinterpretation of CBC data. Current Interpretive Data was last revised on 2018. Imm gran pct 0.3 % [facility] Comment: Interpretive Data Percent cell count reference ranges are not reported, since discordance with absolute values may lead to misinterpretation of CBC data. Current Interpretive Data was last revised on 2018. Lymphocyte pct 3.9 % [facility] Comment: Interpretive Data Percent cell count reference ranges are not reported, since discordance with absolute values may lead to misinterpretation of CBC data. Current Interpretive Data was last revised on 2018. Monocyte pct 6.2 % [facility] Comment: Interpretive Data Percent cell count reference ranges are not reported, since discordance with absolute values may lead to misinterpretation of CBC data. Current Interpretive Data was last revised on 2018. Eosinophil pct 2.2 % [facility] Comment: Interpretive Data Percent cell count reference ranges are not reported, since discordance with absolute values may lead to misinterpretation of CBC data. Current Interpretive Data was last revised on 2018. Basophil pct 0.6 % [facility] Comment: Interpretive Data Percent cell count reference ranges are not reported, since discordance with absolute values may lead to misinterpretation of CBC data. Current Interpretive Data was last revised on 2018. Blood 04/30/2025 10:0 0 AM CDT 04/30/2025 2:57 PM CDT us Zay Lebron MD [place] [id number] [address] [place] [address] * Iron profile w/ IBC (04/30/2025 10:00 AM CDT) Iron 100 35 - 145 mcg/dl TIBC 283 250 - 400 mcg/dL [facility] Transferrin saturation 35 20 - 50 % [facility] Blood 04/30/2025 10:0 0 AM CDT 04/30/2025 2:57 PM CDT Zay Lebron MD [place] [address] [address] [place] [address] * (ABNORMAL) CBC with auto differential (04/30/2025 10:00 AM CDT) Pathologist [facility] WBC 7.75 3.80 - 9.90 K/cumm Hgb 11.5(L) 11.9 - 15.5 g/dL [facility] Hct 37.5 35.6 - 45.5 % [facility] Plt 254 150 - 400 K/cumm [facility] MPV 10.0 9.1 - 12.3 fL [facility] RBC 3.85(L) 3.90 - 5.20 M/cumm [facility] MCV 97.4(H) 81.3 - 96.4 fL [facility] MCH 29.9 27.1 - 33.3 pg [facility] MCHC 30.7(L) 32.3 - 35.7 g/dL [facility] RDW CV 16.8(H) 11.1 - 14.9 % [facility] RDW SD 60.4(H) 35.7 - 48.1 fL [facility] NRBC abs 0.00 0.00 - 0.01 K/cumm [facility] Blood 04/30/2025 10:0 0 AM CDT 04/30/2025 2:57 PM CDT Zay Lebron MD LAB BLOOD ORDERABLES Fi nal Result Performing Organization Address City/[facility] [address]/ZIP Co de Phone Number PB [facility] [address] [facility] [place] [address] * Uric acid (04/30/2025 10:00 AM CDT) Uric acid 5.7 2.5 - 7.0 mg/dL Blood 04/30/2025 10:0 0 AM CDT 04/30/2025 2:57 PM CDT Zay Lebron MD LAB BLOOD ORDERABLES Fi nal Result [facility] [address] [facility] [place] [address] * (ABNORMAL) Ferritin (04/30/2025 10:00 AM CDT) Ferritin 226(H) 13 - 150 ng/mL Blood 04/30/2025 10:0 0 AM CDT 04/30/2025 2:57 PM CDT Zay Lebron MD LAB BLOOD ORDERABLES Fi nal Result Performing Organization Address City/[facility] [address]/[facility] [place] [address] [address] [facility] [place] [address] * Vitamin B12 (04/30/2025 10:00 AM CDT) Vitamin B12 736 230 - 1,250 pg/mL Blood 04/30/2025 10:0 0 AM CDT 04/30/2025 2:57 PM CDT Zay Lebron MD LAB BLOOD ORDERABLES Fi nal Result Performing Organization Address City/[facility] [address]/[facility] Co de Phone Number [facility] [address] [place] [address] * Lipid panel (04/30/2025 10:00 AM CDT) Cholesterol 167 30 - 199 mg/dL Comment: Interpretive Data Ages < or = 19 years Acceptable: <170 mg/dL Borderline high: 170-199 mg/dL High: >or= 200 mg/dL Ages > or = 20 years Desirable: <200 mg/dL Borderline high: 200-239 mg/dL High: >or= 240 mg/dL Literature References: 1. Expert Panel on Integrated Guidelines for Cardiovascular Health and Risk Reduction in Children and Adolescents. Pediatrics 2011;128:S213 2. NCEP Expert Panel. Circulation 2004;110:227 Current Interpretive Data was last revised on 2018. Triglycerides 76 <=149 mg/dL [facility] Comment: Interpretive Data Ages < or = 9 years Acceptable: <75 mg/dL Borderline high: 75-99 mg/dL High: >or= 100 mg/dL Ages 10 to 20 years Acceptable: <90 mg/dL Borderline high: 90-129 mg/dL High: >or= 130 mg/dL Ages > or = 20 years Desirable: <150 mg/dL Borderline high: 150-199 mg/dL High: 200-499 mg/dL Very high: >or= 499 mg/dL Literature References: 1. Expert Panel on Integrated Guidelines for Cardiovascular Health and Risk Reduction in Children and Adolescents. Pediatrics 2011;128:S213 2. NCEP Expert Panel. Circulation 2004;110:227 Current Interpretive Data was last revised on 2018. HDL 80 >=40 mg/dL [facility] Comment: Interpretive Data Ages < or = 19 years Acceptable: >45 mg/dL Borderline low: 40-45 mg/dL Low: <40 mg/dL Ages > or = 20 years Desirable: >or= 60 mg/dL Low: <40 mg/dL Literature References: 1. Expert Panel on Integrated Guidelines for Cardiovascular Health and Risk Reduction in Children and Adolescents. Pediatrics 2011;128:S213 2. NCEP Expert Panel. Circulation 2004;110:227 Current Interpretive Data was last revised on 2018. LDL, calculated 73 <=129 mg/dL [facility] Comment: Interpretive Data Ages < or = 19 years Acceptable: <110 mg/dL Borderline high: 110-129 mg/dL High: >or= 130 mg/dL Ages > or = 20 years Optimal: <100 mg/dL Near optimal: 100-129 mg/dL Borderline high: 130-159 mg/dL High: >160 mg/dL Calculated using the Cloud LDL-C estimating equation. This equation was implemented on 2024. Prior to this date LDL-C was estimated using the Friedewald equation. Literature References: 1. Expert Panel on Integrated Guidelines for Cardiovascular Health and Risk Reduction in Children and Adolescents. Pediatrics 2011;128:S213 2. NCEP Expert Panel. Circulation 2004;110:227 3. Pedro Luis Vasquez et al. KAJAL Cardiol. 2019March 15;5(5):540-548. doi: 10.1001/jamacardio.2020.0013 Current Interpretive Data was last revised on 2024. Non-HDL Cholesterol 87 mg/dL [facility] Comment: Interpretive Data Ages < or = 19 years Acceptable: <120 mg/dL Borderline high: 120-144 mg/dL High: >145 mg/dL Ages > or = 20 years When triglycerides are >200 mg/dL, Non-HDL cholesterol is a secondary target of therapy with treatment goals that are 30 mg/dL greater than the LDL cholesterol target. Literature References: 1. Expert Panel on Integrated Guidelines for Cardiovascular Health and Risk Reduction in Children and Adolescents. Pediatrics 2011;128:S213 2. NCEP Expert Panel. Circulation 2004;110:227 Current Interpretive Data was last revised on 2018. Chol/HDL ratio 2 PB Blood 04/30/2025 10:0 0 AM CDT 04/30/2025 2:57 PM CDT Narrative PB - 04/30/2025 3:46 PM CDT Has the patient been fasting for 8 hours or more?->No Zay Lebron MD LAB [place] [id number] [address] [place] [address] * Dexa Axial Skeleton Bone Density 1 or 2 Site (11/02/2022 10:16 AM HEAD OF QUALITY) Anatomical Region Laterality Modality Body N/A Other 11/02/2022 8:56 PM HEAD OF QUALITY Narrative 11/02/2022 8:57 PM HEAD OF QUALITY EXAM DESCRIPTION: DEXA AXIAL SKELETON BONE DENSITY 1 OR MORE SITES REASON FOR STUDY: 77 y/o year old F with given history of screening. 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 FINDINGS: AP LUMBAR SPINE L1-L4: Total BMD is 0.866 g/cm2 T-score is -1.6 Dissimilar scan types or analysis methods precludes assessment for calculating a significant change. LEFT HIP: Total BMD is 0.737 g/cm2 T-score is -1.7 Dissimilar scan types or analysis methods precludes assessment for calculating a significant change. Femoral neck BMD is 0.611 g/cm2 T-score is -2.1 FRAX: 10 year risk for a major osteoporotic fracture is 12 %, 10 year risk for a hip fracture is 3.8 % IMPRESSION: Based on the left femoral neck bone mineral density (T-score -2.1 ) the patient has low bone mass . REFERENCE: Bone mineral density: Normal (T-score above or = -1.0) Low bone mass (T-score between -1.0 and -2.5) replaces the previously used term osteopenia Osteoporosis (T-score = or below -2.5) Medical evaluation for secondary causes of low bone mineral density may be appropriate. FRAX is a World Health Organization validated fracture risk assessment tool that calculates a person's 10 year probability of a major osteoporosis related fracture and hip fracture. According to the National Osteoporosis Foundation guidelines, postmenopausal women and men age 50 or older with low bone mass and a 10 year probability of a major osteoporosis related fracture = or greater than 20% or a 10 year probability of a hip fracture = or greater than 3% should be considered for treatment. For further information, including treatment recommendations, please refer to the 2013 ISCD Official Positions (http://www.iscd.org) and the NOF's Clinician's Guide to Prevention and Treatment of Osteoporosis (http://www.nof.org/professionals/clinical-guidelines) THIS IS AN ELECTRONICALLY VERIFIED FINAL REPORT 11/02/2022 8:57 PM - Electronically signed by Wing Andersen M.D. MF: [email or web address] Report ID: [id number] Reading Location: [id number] Procedure Note Wing Andersen MD - 11/02/2022 EXAM DESCRIPTION: DEXA AXIAL SKELETON BONE DENSITY 1 OR MORE SITES REASON FOR STUDY: 77 y/o year old F with given history ofscreening. 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 FINDINGS: AP LUMBAR SPINE L1-L4: Total BMD is 0.866 g/cm2 T-score is -1.6 Dissimilar scan types or analysis methods precludes assessment for calculating a significant change. LEFT HIP: Total BMD is 0.737 g/cm2 T-score is -1.7 Dissimilar scan types or analysis methods precludes assessment for calculating a significant change. Femoral neck BMD is 0.611 g/cm2 T-score is -2.1 FRAX: 10 year risk for a major osteoporotic fracture is 12 %, 10 year risk for ahip fracture is 3.8 % IMPRESSION: Based on the left femoral neck bone mineral density (T-score -2.1 )the patient has low bone mass . REFERENCE: Bone mineral density: Normal (T-score above or = -1.0) Low bone mass (T-score between -1.0 and -2.5) replaces thepreviously used term osteopenia Osteoporosis (T-score = or below -2.5) Medical evaluation for secondary causes of low bone mineral density may be appropriate. FRAX is a World Health Organization validated fracture risk assessmenttool that calculates a person's 10 year probability of a major osteoporosisrelated fracture and hip fracture. According to the National OsteoporosisFoundation guidelines, postmenopausal women and men age 50 or older with low bonemass and a 10 year probability of a major osteoporosis related fracture = or greater than 20% or a 10 year probability of a hip fracture = or greaterthan 3% should be considered for treatment. For further information, including treatment recommendations, please referto the 2013 ISCD Official Positions (http://www.iscd.org) and the NOF's Clinician's Guide to Prevention and Treatment of Osteoporosis (http://www.nof.org/professionals/clinical-guidelines) THIS IS AN ELECTRONICALLY VERIFIED FINAL REPORT 11/02/2022 8:57 PM - Electronically signed by Wing Andersen M.D. MF: [email or web address] Report ID: [id number] Reading Location: [place] [address] MD IMG DXA PROCEDURES Tracy l Result from Last 3 Months or Most Recently Relevant to Health Maintenance Insurance MEDICARE [facility] MEDICARE SUPPLEMENT MEDICARE [employer] MEDICARE SUPPLEMENT ([address] [phone] MEDICARE [facility] Advance Directives For more information, please contact: [phone] * Full Code (Latest Code Status on File) Date Activated Date Inactivated Comments 01/23/2025 4:05 AM 01/27/2025 6:05 PM * Full Code Date Activated Date Inactivated Comments 12/06/2024 4:26 PM 12/12/2024 9:56 PM * Full Code Date Activated Date Inactivated Comments 05/29/2023 7:11 PM 06/19/2023 9:56 PM * Full Code Date Activated Date Inactivated Comments 05/09/2023 12:03 PM 05/19/2023 6:27 PM Care Teams Solar Systems Designer Relationship Specialty Start Date End Date Zay Lebron MD [address] [place] [address] PCP - General Family Medicine 04/25/25 Chidi Cardona MD [address] [place] [address] Consulting Physician Rheumatology 11/20/19 Ross Gill MD [address] [place] [address] Consulting Physician Cardiology 11/20/19 Tsering Plaza MD [address] [place] [address] Registered Nurse Nephrology 10/12/22 Tuan Mcintosh MD [address] [place] [address] Referring Physician Cardiology 10/12/22 Brandon Chakraborty MD [address] [place] [address] Consulting Physician Rheumatology 04/13/23 Todd Quiñones MD [address] [facility] [address] [place] [address] Consulting Physician Colon and Rectal Surgery 06/19/23 Danie Montana MD [address] [place] [address] Consulting Physician Urogynecology 12/16/23
--- OUTSIDE RECORDS SUMMARY | 2025-07-13 18:25 | XMS_ITS | Clinical Summary ---
Author Organization [facility] Address [address] [place] [address] Care Team Providers Care Vb Net Programmer Name Role Phone Ross Gill MD Unavailable [phone] Tsering Plaza MD Primary Care Provider [phone] Source Comments [facility],non-owned Affiliates and Associated Physician Practices is amultiple site organization consisting of ambulatory clinics and hospital sitesin [place], [place], [place] and [place]. This disclosure is being madepursuant to the Care Everywhere program and may not contain all information available regarding this patient. Last updated 18.[facility] [employer] Allergies Active Allergy Reactions Criticality Noted Date Comments Adhesive Sensitivity Unknown 10/25/2015 Azathioprine Rash,Nausea and/or Vomiting Low 04/28/2016 Cefaclor 10/25/2015 Other reaction(s): Unknown Cefdinir Swelling 10/25/2015 Ciprofibrate 10/25/2015 Other reaction(s): Unknown Ciprofloxacin Unknown 10/25/2015 Contrast-Iodinated Agents For Ct/Other 10/25/2015 Other reaction(s): Unknown Doxycycline Unknown 10/25/2015 Erythromycin Unknown 10/25/2015 Other reaction(s): Unknown Isosorbide 10/25/2015 Other reaction(s): Headache Latex Unknown 10/25/2015 Lisinopril Angioedema High 10/24/2018 Penicillins Unknown 10/25/2015 Povidone Iodine Unknown 10/25/2015 Simvastatin 10/25/2015 Other reaction(s): Muscle Pain Sulfa Drugs Unknown 10/25/2015 Other reaction(s): Unknown Medications * Be aware that medications may not be up to date on this document. Alwaysverify current medications with the patient. aspirin (ASPIRIN) 81 MG tablet Take 1 Tab by mouth once daily Active cyanocobalamin (VITAMIN B-12) 1000 MCG tablet Take 1,000 mcg by mouth once daily Active Multiple Vitamins-Minera ls (MULTIVITAMIN ADULT PO) Take by mouth once daily Active Calcium Citrate-Vitamin D (CALCIUM + D PO) Active predniSONE (DELTASONE) 1 MG tablet Take 5 mg by mouth once daily Active metoprolol succinate XL 24hr (TOPROL XL) 25 MG tablet TAKE 1 TABLET BY MOUTH EVERY DAY 90 tablet 4 04/09/2020 Active dilTIAZem coated beads 24hr (CARDIZEM CD) 240 MG capsule Take 1 capsule by mouth 2 times daily 180 capsule 4 04/29/2020 Active pravastatin (PRAVACHOL) 40 MG tablet TAKE 1 TABLET BY MOUTH EVERYDAY AT BEDTIME 90 tablet 4 11/22/2020 Active apixaban (ELIQUIS) 5 MG tablet Take 1 (one) tablet by mouth 2 times daily 60 tablet 5 12/13/2020 Active Active Problems Patient Care Coordination No te Formatting of this note migh t be different from the original. Database Reporting Consultant - Dr. Ross Gill Problem Noted Date Diagnosed Date LVH (left ventricular hypertrophy) 04/28/2018 Overview (04/29/2020): 09/19 echo: EF 70%, mild MR, moderate TR 03/21 echo: EF 65%, mild MR/TR, PASP 32 06/01 echo: EF 75%, mild LVH, moderate septal LVH, LVOT gradient 12 -> Valsalva - > 20 mmHg, mild TR, RVSP 45 05/03 echo (Bridget interpretation): EF 80%, moderate LVH, mid-LV gradient 32 mmHg -> Valsalva -> 67 mmHg, mild LAE, possible mild-moderate , Vmax 3.1, gradients 38/21 mmHg, VTI ratio 0.9, mild MR/TR, moderate MAC, RVSP 38, normal IVC 05/04 echo: EF 70%, mild LVH, grade 2 diastolic dysfunction, mid LV gradient 14 mmHg, moderate LAE, AV sclerosis, MAC, mild MR/TR, RVSP 33 Raynaud's syndrome 09/19/2014 Overview (10/25/2015): in setting of RA & Sjogren's & possible lupus per patient... Pure hypercholesterolemia 08/07/2011 Overview (11/04/2020): 11/03 Cholesterol 116 HDL 61 LDL 44 triglyceride 53, normal LFTs/glucose 04/02 Cholesterol 167 HDL 82 LDL 69 triglyceride 82, normal LFTs glucose 101 05/02 Cholesterol 151 HDL 70 LDL 62 triglyceride 94, AST 35 ALT 27 glucose 89 05/01 Cholesterol 116 HDL 65 LDL 39 triglyceride 59, normal LFTs/glucose 04/30 Cholesterol 130 HDL 61 LDL 57 triglyceride 60, AST 23 ALT 17 glucose 90 02/27 Cholesterol 156 HDL 74 LDL 68 [...] 1.5, normal LFTs Renal insufficiency 08/07/2011 Overview (11/04/2020): 11/03 BUN 33 creatinine 1.37 GFR 38 [...] creatinine 1.27 07/26 BUN 31 creatinine 1.39 Paroxysmal atrial fibrillation 01/06/2011 Overview (10/30/2020): ~1996 AF: Rx'd with propafenone Holter: sinus rhythm range 50-110, occasional-frequent PACs, short runs atrial tachycardia, longest 6 12/26 Holter: sinus rhythm at 70, range 54-98, 1 PVC, 104 PACs, 5 atrial couplets, maximum pause 1.5, h/a correlated with SR in 60s 01/29 Holter: SR at 67, range 53-91, rare PVCs/PACs, 3 runs SVT, longest 11 beats at 110, fastest 3 beats at 145 05/01 EKG: SR at 61, RSR in V1, LVH with ST/TW changes, intervals [phone]; little change c/w 04/30 10/31 EKG: SR at 75, RSR in V1, nonspecific ST/TW abnormality (old) 05/02 EKG: SR at 69, LVH, RSR in V1, nonspecific ST/TW abnormality, intervals [phone] 11/01 EKG: SR at 69, 1st degree AVB, promient voltage, RSR in V1, nonspecific ST/TW abnormality, intervals [phone] 05/03 EKG: SR at 81, promient voltage, RSR in V1, nonspecific ST/TW abnormality, intervals [phone] 11/02 EKG: SB at 58, promient voltage, RSR in V1/V2, nonspecific ST/TW abnormality, intervals [phone] 05/04 EKG: SR at 65, prominent voltage, RSR in V1/V2, nonspecific ST/TW abnormality, intervals [phone] 11/03 EKG: SR at 64, 1st degree AVB, frequent PACs, A-couplet, prominent voltage, RSR in V1/V2, nonspecific ST/TW abnormality, intervals [phone] 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 01/06/2011 Overview (05/30/2018): 10/19 cath: LV 180/20-24, RA 3, PA 35/12, wedge10, significant systolic bridging mid LAD, 40-50% proximal D1, EF 80%, no MR 01/23 stress nuclear 6:00--61% maximal heart rate, no ischemia, EF 86% 07/29 stress nuclear 5:50--73% maximal heart rate, no ischemia, EF 75% 06/01 Lexiscan nuclear: No ischemia, EF 78% History of rheumatic fever 01/06/2011 Overview (10/25/2015): Age 89 years old Essential hypertension 01/06/2011 Overview (04/28/2018): 07/26 24-hour urine metanephrines, normetanephrines, VMA, 5'HIAA normal Renal artery stenosis 01/06/2011 Overview (10/18/2018): 10/19 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 2010 renal artery duplex: OK per patient 05/28 renal artery duplex: possible borderline stenosis mid-distal right renal artery, no left IRMA 09/01 renal artery duplex: mild right IRMA, Supraventricular tachycardia 01/06/2011 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 Overview (10/25/2015): 2007 amaurosis fugax -> carotid Duplex negative; temporal artery biopsy negative ~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 Family History Medical History Relation Name Comments Atrial Fibrillation Brother 1 Atrial Fibrillation Sister Relation Name Status Comments Brother 1 Alive AF, pacemaker Brother 2 Alive AF Brother 3 (Age 29) MVA Brother 4 (Age 51) of br marissa carsonysm Father (Age 54) in in dustrial accident Mother (Age 83) PA/CABG at 70 Sister Alive AF Social History Tobacco Use Types Packs/Day Years Used Date Smoking Tobacco: Former Cigarettes Q uit: 03/15/2014 Smokeless Tobacco: Never Alcohol Use Standard Drinks/Week Comments Not Asked 0 (1 standard drink = 0.6 oz pur e alcohol) Comments Unknown Sex and Gender Information Value Date Recorded Sex Assigned at Not on file Legal Sex Female 6:06 AM 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 Gender Identity Not on file Sexual Orientation Not on file Occupation Industry Job Start Date Job End Date retired Not on file Not on file Not on file Last Filed Vital Signs Vital Sign Reading Time Taken Comments Blood Pressure 174/80 12/13/2020 10:22 AM 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 TECHNICIAN Pulse 55 12/13/2020 10:22 AM 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 TECHNICIAN Temperature - - Respiratory Rate 14 04/29/2020 11:33 AM CDT Oxygen Saturation 97% 10/30/2020 11:21 AM 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 TECHNICIAN Inhaled Oxygen Concentration - - Weight 43.7 kg (96 lb 6.4 oz) 12/13/2020 10:22 A M 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 TECHNICIAN Height 154.4 cm (5' 0.8) 12/13/2020 10:22 AM CS T Body Mass Index 18.33 12/13/2020 10:22 AM 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 TECHNICIAN Plan of Treatment Health Maintenance Due Date Last Done Comments BONE DENSITY TESTING 1945 MEDICARE AWV 12 MONTHS 1945 DTAP/TDAP/TD VACCINES (1 - Tdap) 1964 PNEUMOCOCCAL VACCINE 50+ (1 of 1 - PCV) 1995 ZOSTER VACCINE (1 of 2) 1995 Respiratory Syncytial Virus (RSV) Vaccine Pt: or over 60 yrs (1 - 1-dose 75+ series) 2020 COVID-19 VACCINE ( - season) 2024 08/05/2022, 09/29/2021, 01/31/2021, Additional history exists DEPRESSION SCREENING 11/15/2024 INFLUENZA VACCINE (#1) 2025 , 08/18/2021, 07/31/2020, Additional history exists HEPATITIS B VACCINE Aged Out No longe r eligible based on patient's age to complete this topic HIB VACCINE Aged Out No longer eligi ble based on patient's age to complete this topic HPV VACCINE Aged Out No longer eligi ble based on patient's age to complete this topic MENINGOCOCCAL (Group B) VACCINE SHARED DECISION-MAKING Aged Out No longer eligible based on patient's age to complete this topic MENINGOCOCCAL GROUPS A/C/Y/W VACCINE Aged Out No longer eligible based on patient's age to complete this topic Insurance MEDICARE [facility] MEDICARE Care Teams Vb Net Programmer Relationship Specialty Start Date End Date Tsering Plaza MD [facility], [address] [place] [address] PCP - General Nephrology 04/29/20 Ross Gill MD Cardiovascular Disease 10/25/15
--- NOTE | 2025-07-13 18:29 | PC.NURSE ---
After checking in and getting a nose clamp, pt looked at the waiting room and states im going got somewhere else
== END 2025-07-13 19:11 | disposition left against medical advice (07) ==
LOC: ANHED 19:00
DX: Z53.21 Procedure and treatment not carried out due to patient leaving prior to being seen by health care provider (principal)
CPT/HCPCS: 99199